=== PATIENT | female | born 1965 | race Caucasian/White ===

== ENCOUNTER → 2019-07-31 16:36 | Outpatient (BNVA) | payer OTHER, SELFPAY | PROVIDERS: Family Provider Internal Medicine; Visit Provider Internal Medicine | DX: G47.00 Insomnia, unspecified (principal); E87.6 Hypokalemia; M81.0 Age-related osteoporosis without current pathological fracture; Z87.311 Personal history of (healed) other pathological fracture; G47.09 Other insomnia | CPT/HCPCS: 80048 ==

== ENCOUNTER 2019-09-14 13:44 | Outpatient (CLI) | payer OTHER, SELFPAY ==
[2019-09-14 13:00] VITALS: BP 133/85; PULSE 104; RESP 16; TEMP 36.6; O2SAT 98
[2019-09-14] MEDS: denosumab 60 mg SDV SUBCUT (13:56)
--- NOTE | 2019-09-14 14:13 | PC.NURSE ---
A&Ox3. Negative COVID 19 screening. States has cough r/t allergies and chronic. small amount of clear sputum at times. Discussed Prolia.
[2019-09-14 14:26] VITALS: BP 122/75; PULSE 96; RESP 16; TEMP 37.7; O2SAT 98
[2019-09-14 14:31] VITALS: TEMP 36.4
[2019-09-14 15:00] VITALS: TEMP 36.4
[2019-09-14 15:15] VITALS: BP 123/81; PULSE 88; RESP 16; TEMP 36.4; O2SAT 98
--- NOTE | 2019-09-14 15:16 | PC.NURSE ---
[address] Sotelo notified. Denies SOB, CP, Pain, difficulty swallowing.
== END 2019-09-14 13:45 | disposition home or self-care (01) ==
LOC: RHEOACUTE 13:45
PROVIDERS: Family Provider Internal Medicine; Visit Provider Internal Medicine Rheumatology
DX: M81.0 Age-related osteoporosis without current pathological fracture (principal)
CPT/HCPCS: 36415; 82306; 96372; J0897

== ENCOUNTER 2019-11-01 12:25 | Outpatient (CLI) | payer OTHER, SELFPAY ==
--- NOTE | 2019-11-01 15:15 | XR_ITS ---
WS: [id number] SCREENING DEXA SCAN [employer] ([employer]) CLINICAL INFORMATION: Osteoporosis COMPARISON: None. FINDINGS: The L1-L4 bone mineral density measures 0.806 g/cm2. This corresponds to a T score score of -3.1 and Z score of -3.0. Left forearm bone mineral density is 0.801 with a T score of -0.9 and Z score of -0.7 XR/XR DEXA axial skeleton* [id number] IMPRESSION: Osteoporosis in the lumbar spine. Forearm demonstrates normal bone mineralization approaching osteopenia.
== END 2019-11-01 12:26 | disposition home or self-care (01) ==
PROVIDERS: Family Provider Internal Medicine; PCP Internal Medicine; Visit Provider Internal Medicine Rheumatology
DX: M81.0 Age-related osteoporosis without current pathological fracture (principal)
CPT/HCPCS: 77080

== ENCOUNTER 2020-01-23 08:55 | Outpatient (CLI) | payer OTHER, SELFPAY ==
--- NOTE | 2020-01-23 09:08 | MM_ITS ---
WS: [id number] BILATERAL DIGITAL DIAGNOSTIC MAMMOGRAM MAMMOGRAPHY WITH CAD CLINICAL INFORMATION: LUMP ON BREAST COMPARISON: TECHNIQUE: Bilateral CC, MLO, and ML views. FINDINGS: Scattered fibroglandular densities bilaterally. Lucent centered calcifications. Unremarkable left carol ast. Palpable marker along the axillary tail right breast. 6 mm lymph node along the axillary tail near th e palpable marker. No other mammographic abnormalities in this area. Ultrasound is pending. ULTRASOUND BREAST RIGHT TECHNIQUE: Ultrasound right breast focused area of concern. CLINICAL INFORMATION: LUMP ON BREAST COMPARISON: None. FINDINGS: Ultrasound right breast along the axillary tail area of concern. Deep to the palpable marker there is a normal-sized lymph node preserved fatty hilum measuring 7.9 x 7.5 x 9.0 mm. This has a benign appe arance but could be further evaluated with ultrasound-guided biopsy if continued concern. Additional adjacent normal appearing lymph node with fatty hilum superior to the skin marker measurin g 7.5 x 6.1 mm MM/[place] [id number] BI-RADS: 2-Benign FOLLOW UP: 1 Year Follow-up Recommend return to annual screening mammography.
--- NOTE | 2020-01-23 09:35 | US_ITS ---
WS: [id number] BILATERAL DIGITAL DIAGNOSTIC MAMMOGRAM MAMMOGRAPHY WITH CAD CLINICAL INFORMATION: LUMP ON BREAST COMPARISON: TECHNIQUE: Bilateral CC, MLO, and ML views. FINDINGS: Scattered fibroglandular densities bilaterally. Lucent centered calcifications. Unremarkable left carol ast. Palpable marker along the axillary tail right breast. 6 mm lymph node along the axillary tail near th e palpable marker. No other mammographic abnormalities in this area. Ultrasound is pending. ULTRASOUND BREAST RIGHT TECHNIQUE: Ultrasound right breast focused area of concern. CLINICAL INFORMATION: LUMP ON BREAST COMPARISON: None. FINDINGS: Ultrasound right breast along the axillary tail area of concern. Deep to the palpable marker there is a normal-sized lymph node preserved fatty hilum measuring 7.9 x 7.5 x 9.0 mm. This has a benign appe arance but could be further evaluated with ultrasound-guided biopsy if continued concern. Additional adjacent normal appearing lymph node with fatty hilum superior to the skin marker measurin g 7.5 x 6.1 mm US/US breast RT limited* [id number] BI-RADS: 2-Benign FOLLOW UP: 1 Year Follow-up Recommend return to annual screening mammography.
== END 2020-01-23 08:56 | disposition home or self-care (01) ==
LOC: RADSHAW 09:01
PROVIDERS: PCP Internal Medicine; Visit Provider Internal Medicine
DX: N63.10 Unspecified lump in the right breast, unspecified quadrant (principal)
CPT/HCPCS: 76642; 77066

== ENCOUNTER → 2020-01-31 14:48 | Outpatient (BNVA) | payer OTHER, SELFPAY | PROVIDERS: Family Provider Internal Medicine; PCP Internal Medicine; Visit Provider Internal Medicine Rheumatology | DX: M81.0 Age-related osteoporosis without current pathological fracture (principal); Z79.899 Other long term (current) drug therapy; F17.210 Nicotine dependence, cigarettes, uncomplicated; E55.9 Vitamin D deficiency, unspecified | CPT/HCPCS: 36415; 82306; 82310; 82565; 82784; 83516; 83970; 84075; 84080; 84100; 99203 ==

== ENCOUNTER → 2020-02-28 11:24 | Outpatient (BNVA) | payer OTHER, SELFPAY | PROVIDERS: Family Provider Internal Medicine; PCP Internal Medicine; Visit Provider Nurse Practitioner Family | DX: Z11.59 Encounter for screening for other viral diseases (principal) | CPT/HCPCS: 87635 ==

== ENCOUNTER → 2020-03-06 15:54 | Outpatient (BNVA) | payer OTHER, SELFPAY | PROVIDERS: Family Provider Internal Medicine; PCP Internal Medicine; Visit Provider Nurse Practitioner Family | DX: Z11.59 Encounter for screening for other viral diseases (principal) | CPT/HCPCS: 87635 ==

== ENCOUNTER → 2020-03-11 11:48 | Outpatient (BNVA) | payer OTHER, SELFPAY | PROVIDERS: Family Provider Internal Medicine; PCP Internal Medicine; Visit Provider Internal Medicine Rheumatology | DX: M81.0 Age-related osteoporosis without current pathological fracture (principal) | CPT/HCPCS: 36415; 82310; 82565 ==

== ENCOUNTER 2020-03-21 16:00 | Outpatient (CLI) | payer OTHER, SELFPAY ==
[2020-03-21 15:30] VITALS: BP 147/86; PULSE 102; RESP 16; TEMP 36.8; O2SAT 98
[2020-03-21] MEDS: denosumab 60 mg SDV SUBCUT (16:08)
[2020-03-21 16:32] VITALS: BP 133/88; PULSE 93; RESP 16; TEMP 36.8
== END 2020-03-21 16:01 | disposition home or self-care (01) ==
LOC: RHEOACUTE 16:01
PROVIDERS: Family Provider Internal Medicine; PCP Internal Medicine; Visit Provider Internal Medicine Rheumatology
DX: M81.0 Age-related osteoporosis without current pathological fracture (principal); Z79.899 Other long term (current) drug therapy; R79.89 Other specified abnormal findings of blood chemistry; F17.210 Nicotine dependence, cigarettes, uncomplicated; E55.9 Vitamin D deficiency, unspecified; Z91.81 History of falling
CPT/HCPCS: 36415; 82306; 96372; 99213; J0897

== ENCOUNTER 2020-08-27 14:23 | Outpatient (CLI) | payer OTHER, SELFPAY ==
[2020-08-27 16:03] LABS: 25 Hydroxy Vitamin D 29 ng/mL (30-100); Calcium 9.2 mg/dL (8.5-10.5); Glomerular Filtration Rate 129.6 mL/min (90-130)
== END 2020-08-27 14:24 | disposition home or self-care (01) ==
PROVIDERS: PCP Internal Medicine; Visit Provider Internal Medicine Rheumatology
DX: M81.0 Age-related osteoporosis without current pathological fracture (principal); Z79.899 Other long term (current) drug therapy
CPT/HCPCS: 36415; 82306; 82310; 82565; 96372

== ENCOUNTER → 2020-09-10 15:21 | Outpatient (BNVA) | payer OTHER, SELFPAY | PROVIDERS: PCP Internal Medicine; Visit Provider Internal Medicine Rheumatology | DX: M81.0 Age-related osteoporosis without current pathological fracture (principal); L50.8 Other urticaria; E55.9 Vitamin D deficiency, unspecified; F17.210 Nicotine dependence, cigarettes, uncomplicated | CPT/HCPCS: 99214 ==

== ENCOUNTER 2020-09-25 15:10 | Outpatient (CLI) | payer OTHER, SELFPAY ==
[2020-09-25 15:30] VITALS: BP 123/75; PULSE 80; RESP 17; TEMP 36.3; O2SAT 97
[2020-09-25] MEDS: denosumab 60 mg SDV SUBCUT (15:35)
[2020-09-25 15:43] VITALS: BP 123/75; PULSE 80; RESP 18; TEMP 36.3; O2SAT 97
== END 2020-09-25 15:11 | disposition home or self-care (01) ==
PROVIDERS: PCP Internal Medicine; Visit Provider Internal Medicine Rheumatology
DX: M81.0 Age-related osteoporosis without current pathological fracture (principal)
CPT/HCPCS: 96372; J0897

== ENCOUNTER → 2020-11-21 12:50 | Outpatient (BNVA) | payer OTHER, SELFPAY | PROVIDERS: PCP Internal Medicine; Visit Provider Internal Medicine | DX: Z12.11 Encounter for screening for malignant neoplasm of colon (principal); Z20.822 Contact with and (suspected) exposure to COVID-19 | CPT/HCPCS: 87635 ==

== ENCOUNTER 2020-11-25 07:14 | Day surgery (SDC) | payer OTHER, SELFPAY ==
--- NOTE | 2020-11-25 07:27 | ANES.PREANE2 ---
Pre-Anesthetic Assessment Pre-Anesthetic Assessment: Height/Weight: Height 1.7 m Weight 73.482 kg Preop Diagnosis: screening Proposed Procedure: Operation Date: 11/25/20 09:00 Proposed Procedures p Colonoscopy 16536 Z12.11(Not Applicable) - Saul Corona MD Familial anesthetic complications: None Was Beta Germain taken within 24 hours: N/A Was Clonidine taken within 24 hours: N/A Last intake: > 8 hrs Social: Social History: Tobacco and No alcohol Exam: Pre-Anes Outpt Exam: alert, oriented x 3, clear to auscultation bilaterally and regular rate & rhythm Airway: Cervical ROM: WNL MP: 3 Dentition: Full Musc/skel: Musc/skel: OA/DJD Comments: severe osteoporosis - r hip replaced, b/l wrist fractures d/t fall Anesthetic Plan: ASA status: 2 Anesthesia: MAC Risk of > 500 ml blood loss (7ml/kg in children): No PFSH Anesthesia PFSH: Medical History 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 Chronic pain High risk medication use Insomnia Low vitamin D level Osteoporosis Surgical History History of breast biopsy History of colonoscopy with polypectomy 12/14/2012 History of hysterectomy History of oral surgery SALVILARY GLAND REMOVAL ON LEFT History of surgery on wrist History of tonsillectomy Family History Other CAD (coronary artery disease) Cancer Diabetes Heart disease Stroke Denies family history of Rheumatoid arthritis Lupus Chronic kidney disease (CKD) Lung disease Hypertension Social History Smoking and tobacco status: current every day smoker Alcohol intake: never Marital status: History of recent travel: No Data Anesthesia Cardiac Studies: No Data to Display
[2020-11-25 07:40] VITALS: BP 130/85; PULSE 104; RESP 18; TEMP 36.9; O2SAT 95
[2020-11-25] MEDS: sodium chloride 0.9% 1,000 ML 30 ML IV (07:51)
--- NOTE | 2020-11-25 09:19 | P.HP_ITS ---
Same Day Surgery H&P Indication for Procedure/HPI DATE OF PROCEDURE: November 25, 2020 CHIEF COMPLAINT/INDICATIONFOR SURGICAL PROCEDURE: Family history of colon cancer PREOP DIAGNOSIS: screening PLANNED PROCEDRUE: Operation Date: 11/25/20 09:00 Proposed Procedures p Colonoscopy 55613 Z12.11(Not Applicable) - Saul Corona MD Medications/Allergies* Home Medications Medication Instructions Recorded Confirmed Type epinephrine 0.3 mg/0.3 mL 0.3 mg IM Q30M PRN 07/25/19 11/25/20 History injection, auto-injector diphenhydramine HCl 25 mg capsule 25 mg PO .at hs cap 10/16/19 11/25/20 History denosumab 60 mg/mL subcutaneous 60 mg SUBCUT .every 6 months ml 01/18/20 11/25/20 History syringe Allergies/Adverse Reactions Allergy/AdvReac Type Severity Reaction Status Date / Time azithromycin Allergy Severe ALGY-Anaphy Verified 11/25/20 07:40 laxis amoxicillin [From Augmentin] Allergy Unknown Verified 11/25/20 07:40 ciprofloxacin [From Cipro] Allergy Unknown Verified 11/25/20 07:40 clavulanic acid Allergy Unknown Verified 11/25/20 07:40 [From Augmentin] codeine Allergy unknown Verified 11/25/20 07:40 iodine Allergy Unknown Verified 11/25/20 07:40 norfloxacin [From Noroxin] Allergy Unknown Verified 11/25/20 07:40 NSAIDS (Non-Steroidal Allergy Unknown Verified 11/25/20 07:40 Anti-Inflamma Penicillins Allergy Unknown Verified 11/25/20 07:40 Sulfa (Sulfonamide Allergy Unknown Verified 11/25/20 07:40 Antibiotics) Current Medications: Generic Name Dose Route Start Last Admin Trade Name Freq PRN Reason Stop Dose Admin Sodium Chloride 1,000 mls @ 30 mls/hr 11/25/20 07:45 11/25/20 07:51 Sodium Chloride 0.9% IV 11/26/20 07:44 30 mls/hr .Q24H MYA Administration Pertinent History/Comorbid Conditions* Medical History (Updated 03/21/20 @ 16:04 by Luis Eduardo Sotelo MD) 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 Chronic pain High risk medication use Insomnia Low vitamin D level Osteoporosis Surgical History (Updated 07/31/19 @ 15:51 by Saul Corona MD) History of breast biopsy History of colonoscopy with polypectomy 12/14/2012 History of hysterectomy History of oral surgery SALVILARY GLAND REMOVAL ON LEFT History of surgery on wrist History of tonsillectomy Family History (Updated 01/31/20 @ 15:13 by Marlene Parada LPN) Diabetes CAD (coronary artery disease) Heart disease Cancer Stroke Denies family history of Rheumatoid arthritis Lupus Chronic kidney disease (CKD) Lung disease Hypertension Social History Smoking and tobacco status: current every day smoker Alcohol intake: never Marital status: History of recent travel: No Pertinent Exam Findings alert, oriented x 3, clear to auscultation bilaterally, regular rate & rhythm, operative site marked and procedure specific exam findings Recommendations Surgery/Procedure today Coding Level of Care Code 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
[2020-11-25 09:44] VITALS: BP 98/71; PULSE 83; RESP 20; TEMP 36.3; O2SAT 92
[2020-11-25 09:56] VITALS: BP 107/62; PULSE 81; RESP 18; O2SAT 97
--- NOTE | 2020-11-25 14:22 | ANE.PACU2 ---
Inpatient post-anesthesia follow up: Airway intact: Yes Vital signs: Temperature 97.3 F Pulse Rate 81 Respiratory Rate 18 Blood Pressure 107/62 Pulse Oximetry 97 Oxygen Delivery Me thod Room Air Oxygen Flow Rate Fraction of Inspir ed Oxygen Hydration adequate: Yes Nausea and vomiting: No Pain level: 2 Mental status: Baseline
== END 2020-11-25 10:05 | disposition home or self-care (01) ==
PROVIDERS: PCP Internal Medicine; Visit Provider Internal Medicine
PROC: 0DJD8ZZ Inspection of Lower Intestinal Tract, Via Natural or Artificial Opening Endoscopic (ICD-10-PCS; CPT 45378; principal; 2020-11-25 09:00)
DX: Z12.11 Encounter for screening for malignant neoplasm of colon (principal); Z86.010 Personal history of colon polyps; D12.4 Benign neoplasm of descending colon; Z79.1 Long term (current) use of non-steroidal anti-inflammatories (NSAID); M81.0 Age-related osteoporosis without current pathological fracture; F17.210 Nicotine dependence, cigarettes, uncomplicated
CPT/HCPCS: 45385; 88305; 96360; 96361; J2704; J7030

== ENCOUNTER 2021-03-18 14:26 | Outpatient (CLI) | payer OTHER, SELFPAY ==
--- NOTE | 2021-03-18 14:33 | MM_ITS ---
WS: [id number] DIAGNOSTIC BILATERAL DIGITAL MAMMOGRAM WITH CAD RIGHT breast ultrasound, limited HISTORY: UNSPECIFIED LUMP IN UNSPECIFIED BREAST COMPARISON: 01/23/2020 and 01/07/2018 TECHNIQUE: Bilateral craniocaudad, mediolateral oblique, and mediolateral views are submitted. Spot c ompression RIGHT MLO. Computer aided detection utilized. Breast composition: There are scattered areas of fibroglandular density. Palpable marker towards the RIGHT axillary tail is identified. No underlying mass identified. Normal fat within the axillary tail . No distortion of tissues. Benign calcification in the mid RIGHT breast. RIGHT breast ultrasound, limited. No abnormality noted in the RIGHT breast in the region of the palpable area. There are several benign lymph nodes in the axillary tail which may be related to the palpable abnormality. These are normal lymph nodes. MM/[place] [id number] IMPRESSION: BI-RADS: 2-Benign FOLLOW UP: 1 Year Follow-up
== END 2021-03-18 14:27 | disposition home or self-care (01) ==
LOC: RADSHAW 14:30
PROVIDERS: PCP Internal Medicine; Visit Provider Internal Medicine
DX: N63.0 Unspecified lump in unspecified breast (principal)
CPT/HCPCS: 76642; 77066

== ENCOUNTER 2021-03-31 15:20 | Outpatient (CLI) | payer OTHER, SELFPAY ==
[2021-03-31 16:36] LABS: Glomerular Filtration Rate 129.1 mL/min (90-130)
[2021-03-31 16:52] LABS: 25 Hydroxy Vitamin D 20 ng/mL (30-100)
== END 2021-03-31 15:21 | disposition home or self-care (01) ==
PROVIDERS: PCP Internal Medicine; Visit Provider Internal Medicine Rheumatology
DX: M81.0 Age-related osteoporosis without current pathological fracture (principal); Z79.899 Other long term (current) drug therapy
CPT/HCPCS: 36415; 82040; 82306; 82310; 82565

== ENCOUNTER 2021-04-15 15:07 | Outpatient (CLI) | payer OTHER, SELFPAY ==
[2021-04-15 15:22] VITALS: BP 137/91; PULSE 77; RESP 18; TEMP 36.6; O2SAT 97
[2021-04-15] MEDS: denosumab 60 mg SDV SUBCUT (15:33)
[2021-04-15 15:40] VITALS: BP 152/88; PULSE 91; RESP 18; TEMP 36.7; O2SAT 97
--- NOTE | 2021-04-15 16:12 | PC.NURSE ---
Patient's BP was elevated after injection, and b/l erythema noted on palms of hands. She states that she will self-medicate with Benadryl upon arrival at home, which is [place] [address] She will contact Emergency Services if she becomes more symptomatic. I spoke with Stefanie at Dr. Sotelo's office about the patient's condition, and she stated that she would inform the physician. dh
== END 2021-04-15 15:08 | disposition home or self-care (01) ==
LOC: ONCMED 15:09
PROVIDERS: PCP Internal Medicine; Visit Provider Internal Medicine Rheumatology
DX: M81.0 Age-related osteoporosis without current pathological fracture (principal)
CPT/HCPCS: 96372; J0897

== ENCOUNTER 2021-07-18 12:07 | Outpatient (CLI) | payer OTHER, SELFPAY ==
--- NOTE | 2021-07-18 12:29 | XRR_ITS ---
PROCEDURE INFORMATION: Exam: XR Right Femur Exam date and time: 07/18/2021 12:29 PM Age: 55 years old Clinical indication: Thigh; Left; Prior surgery; Patient HX: Pain in right femur at the implant site; Additional info: Acute right femur pain TECHNIQUE: Imaging protocol: XR Right femur. Views: 2 views. COMPARISON: MRI Hip w/o RIGHT [id number] 09/29/2016 4:26 PM FINDINGS: Bones/joints: Right total hip arthroplasty noted in expected alignment. No signs of hardware loosening. Right femur is intact without fracture or other osseous abnormality. Soft tissues: Unremarkable. XR/XR femur RT min 2V* [id number] IMPRESSION: Right total hip arthroplasty in expected alignment. No signs of hardware complication. Otherwise, unremarkable radiographs of the right femur.
== END 2021-07-18 12:08 | disposition home or self-care (01) ==
LOC: RAD 12:23
PROVIDERS: PCP Internal Medicine; Visit Provider Internal Medicine
DX: M79.604 Pain in right leg (principal); Z96.641 Presence of right artificial hip joint
CPT/HCPCS: 73552

== ENCOUNTER 2021-09-14 10:00 | Emergency (ER) | payer OTHER, SELFPAY ==
[2021-09-14 10:09] VITALS: BP 149/87; PULSE 102; RESP 18; TEMP 36.8; O2SAT 97; BMI 26.6
--- NOTE | 2021-09-14 10:19 | XRR_ITS ---
PROCEDURE INFORMATION: Exam: XR Left Hip Exam date and time: 09/14/2021 10:32 AM Age: 56 years old Clinical indication: Hip pain; Left hip; Prior surgery; Additional info: Pain, injury; One view pelvis too please TECHNIQUE: Imaging protocol: XR Left hip. Views: 2 or 3 views hip with pelvis when performed. COMPARISON: No relevant prior studies available. FINDINGS: Bones/joints: Metallic arthroplasty is present in the right hip in good position. No acute bony abnormalities seen. No acute fracture. Soft tissues: Unremarkable. XR/XR hip LT 2-3V wo/w pel* [id number] IMPRESSION: 1. No acute findings. 2. Metallic arthroplasty right hip in good position
--- NOTE | 2021-09-14 10:34 | W.ED.LOWEXIN ---
HPI - Extremity Injury (Lower) General: Chief Complaint: Extremity Injury, Lower Stated Complaint: Left Hip injury Time Seen by Provider: 09/14/21 10:01 Source: patient Mode of arrival: ambulatory Limitations: no limitations History of Present Illness: Patient is a nice 56-year-old female who presents to ED today with a complaint of left hip pain. Patient states she was walking 2 days ago when she heard a clunk in her left hip and states she has had discomfort since. 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 Patient is still ambulatory on the extremity. She has not noticed any redness or warmth to the joint. No recent illness. She does not complain of numbness, tingling, loss of sensation, color/temperature changes to the left lower extremity. Denies back pain. MD complaint: hip injury Onset (ago): day(s) Injury: Left: hip Place: home Exacerbating factors: weight bearing, movement and palpation Associated symptoms: Reports no associated symptoms Other symptoms: none Review of Systems Const: Denies: fever(s), chills, body aches, fatigue or malaise Card: Denies: chest pain Resp: Denies: dyspnea GI: Denies: abdominal pain : Denies: flank pain, dysuria or hematuria Musc: Reports: joint pain (L hip); Denies: neck pain, back pain, extremity pain, extremity swelling, joint swelling, joint redness, joint warmth or limited range of motion Skin/Breast: Denies: rash Neuro: Denies: headache(s), numbness in extremities, weakness in extremities or sensory changes [facility] ED PFSH: Medical History 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 Chronic pain High risk medication use Insomnia Low vitamin D level Osteoporosis Surgical History History of breast biopsy History of colonoscopy with polypectomy 12/14/2012 History of hysterectomy History of oral surgery SALVILARY GLAND REMOVAL ON LEFT History of surgery on wrist History of tonsillectomy Family History Other CAD (coronary artery disease) Cancer Diabetes Heart disease Stroke Denies family history of Rheumatoid arthritis Lupus Chronic kidney disease (CKD) Lung disease Hypertension Social History Smoking and tobacco status: current every day smoker Alcohol intake: never Marital status: History of recent travel: No Physical Exam Const: COMMON NORMALS: no acute distress, average body habitus, patient oriented x3, no limitations, healthy appearing, alert and well nourished GENERAL APPEARANCE: cooperative Back/Pelvis: COMMON NORMALS: thoracic and lumbar spine normal to inspection, no thoracic nor lumbar tenderness and thoraco-lumbar ROM normal Extremity: COMMON NORMALS: capillary refill normal, no joint enlargement, no clubbing, cyanosis or edema, no calf tenderness and no pedal edema GENERAL: Yes normal exam except as noted LEFT LOWER EXTREMITY: Yes hip joint (pain to posteriolateral hip; no shortening/rotation; normal flex/extension) Left hip: Yes neurovascular exam (normal) Neuro: COMMON NORMALS: patient oriented x3, moves all extremities, no focal motor deficits and no sensory deficits noted SENSORIUM/ORIENTATION: Yes alert Skin: COMMON NORMALS: no rashes or lesions noted GENERAL SKIN EXAM: no rashes or lesions noted Course Vital Signs: Vital signs: Vital Signs Temperature 98.1 F 09/14/21 10:38 Pulse Rate 96 09/14/21 10:38 Respiratory Rate 18 09/14/21 10:38 Blood Pressure 147/103 09/14/21 10:38 Pulse Oximetry 96 09/14/21 10:38 MDM - Extremity Injury (Lower) Medical Decision Making XRs negative. Patient is ambulatory. She states she follows with pain management and has pain medications at home she can take. Patient states she plans on following up with her PCP Dr. Corona if pain persists. Other Data [address] [address] XRay Report Signed Patient: Lisbeth Smith Unit #: [id number] : [id number] Age/Sex: 56 / F ADM Date: 09/14/21 Loc: ER Room/Bed: Attending Dr: Ordering Provider/Ordering MD: Belkis Chery Date of Service: 09/14/21 Procedure(s): XR hip LT 2-3V wo/w pel* [id number] Accession Number(s): [id number] Report Number: [id number] PROCEDURE INFORMATION: Exam: XR Left Hip Exam date and time: 09/14/2021 10:32 AM Age: 56 years old Clinical indication: Hip pain; Left hip; Prior surgery; Additional info: Pain, injury; One view pelvis too please TECHNIQUE: Imaging protocol: XR Left hip. Views: 2 or 3 views hip with pelvis when performed. COMPARISON: No relevant prior studies available. FINDINGS: Bones/joints: Metallic arthroplasty is present in the right hip in good position. No acute bony abnormalities seen. No acute fracture. Soft tissues: Unremarkable. XR/XR hip LT 2-3V wo/w pel* [id number] IMPRESSION: 1. No acute findings. 2. Metallic arthroplasty right hip in good position Dictated By: Gary Jesus Signed By: Gary Jesus Signed Date/Time: 09/14/21 1106 DD/ 1032 Discharge Plan Discharge Patient Disposition: Home Clinical Impression: Acute pain of left hip Condition: Stable Prescriptions: No Action epinephrine [EpiPen 2-Dudley] 0.3 mg/0.3 mL auto-injector 0.3 mg IM Q30M PRN (Reason: Allergy Symptoms) 0RF Prolia 60 mg/mL syringe 60 mg SUBCUT .every 6 months 0RF diphenhydramine HCl [Benadryl] 25 mg capsule 25 mg PO .at hs 0RF levofloxacin 750 mg tablet 750 mg PO DAILY Qty: 14 0RF fluticasone propionate [Flonase Allergy Relief] 50 mcg/actuation spray,suspension 2 spray intranasal DAILY Qty: 16 3RF Rx Instructions: administer into each nostril cholecalciferol (vitamin D3) 1,250 mcg (50,000 unit) capsule 1,250 mcg PO .Q7days Qty: 12 0RF mirtazapine [Remeron] 15 mg tablet 15 mg PO .at bedtime 90 Days Qty: 90 0RF Discharge Orders: Discharge ED (Routine); Ordered 09/14/21 Ordered By: Belkis Chery Referrals: Saul Corona MD [Primary Care Provider] - Patient Instructions: Hip Pain (ED) Coding Level of Care Code ED Continuous Improvement Black Belt for Tee Villalobos
[2021-09-14 10:38] VITALS: BP 147/103; PULSE 96; RESP 18; TEMP 36.7; O2SAT 96
== END 2021-09-14 11:16 | disposition home or self-care (01) ==
PROVIDERS: Emergency Provider Physician Assistant; PCP Internal Medicine
DX: M25.552 Pain in left hip (principal); F17.210 Nicotine dependence, cigarettes, uncomplicated
CPT/HCPCS: 73502; 99282

== ENCOUNTER 2021-10-16 14:37 | Outpatient (CLI) | payer OTHER, SELFPAY ==
[2021-10-16 15:03] VITALS: BP 151/98; PULSE 86; RESP 18; TEMP 36.6; O2SAT 98
[2021-10-16] MEDS: predniSONE 20 mg Tablet PO (15:12)
[2021-10-16] MEDS: diphenhydrAMINE 25 mg Capsule PO (15:12)
[2021-10-16 15:52] LABS: Albumin Level 4.2 g/dL (3.5-5.2); Calcium 9.3 mg/dL (8.5-10.5); Glomerular Filtration Rate 104.2 mL/min (90-130)
[2021-10-16] MEDS: denosumab 60 mg SDV SUBCUT (15:56)
[2021-10-16 15:58] LABS: 25 Hydroxy Vitamin D 16 ng/mL (30-100)
[2021-10-16 16:11] VITALS: BP 157/94; PULSE 87; RESP 18; TEMP 36.9; O2SAT 98
== END 2021-10-16 14:38 | disposition home or self-care (01) ==
PROVIDERS: PCP Internal Medicine; Referring Provider Internal Medicine Rheumatology; Visit Provider Internal Medicine Rheumatology
DX: M81.0 Age-related osteoporosis without current pathological fracture (principal); Z79.899 Other long term (current) drug therapy
CPT/HCPCS: 36415; 82040; 82306; 82310; 82565; 96372; J0897; J7512

== ENCOUNTER 2022-02-12 05:11 | Emergency (ER) | payer OTHER, SELFPAY ==
[2022-02-12 05:20] VITALS: BP 182/97; PULSE 90; RESP 18; TEMP 36.8; O2SAT 97; BMI 27.9
--- NOTE | 2022-02-12 05:21 | CTR_ITS ---
PROCEDURE INFORMATION: Exam: CT Head Without Contrast Exam date and time: 02/12/2022 5:25 AM Age: 56 years old Clinical indication: Stroke-like symptoms; Left facial droop; Additional info: Sudden onset of left facial droop with numbness. Hypertensive on monitor. TECHNIQUE: Imaging protocol: Computed tomography of the head without contrast. Radiation optimization: All CT scans at this facility use at least one of these dose optimization techniques: automated exposure control; mA and/or kV adjustment per patient size (includes targeted exams where dose is matched to clinical indication); or iterative reconstruction. Other technique: STROKE PROTOCOL was implemented. COMPARISON: No relevant prior studies available. RADIATION DOSE METRICS: Total DLP (mGy-cm): 1115.15 FINDINGS: Brain: Normal. No hemorrhage. Unremarkable white matter. No mass effect. Cerebral ventricles: Cavum septum pellucidum suspected. Ventricles normal size. Paranasal sinuses: Visualized sinuses are unremarkable. No fluid levels. Mastoid air cells: Visualized mastoid air cells are well aerated. Bones/joints: Unremarkable. No acute fracture. Soft tissues: Unremarkable. CT/CT head wo con* [id number] IMPRESSION: No acute intracranial abnormality. ASSESSMENT: ASPECTS ([place] Stroke Program Early CT Score) is 10.
--- NOTE | 2022-02-12 05:22 | W.ED.NEUROSD ---
HPI - Neuro Symptoms/Deficit General: Chief Complaint: Neuro Symptoms/Deficit Stated Complaint: left side of face numb Time Seen by Provider: 02/12/22 05:14 Source: patient Mode of arrival: ambulatory Limitations: no limitations History of Present Illness: 56-year-old female who states that yesterday at noon she started noticing some tingling to the left side of her face. States she woke up with swelling and went to take a drink of Diet Coke and dribbled out her mouth and she noticed that she had partial paralysis to the left side of her face. 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 Chronic pain High risk medication use Insomnia Low vitamin D level Osteoporosis Surgical History History of breast biopsy History of colonoscopy with polypectomy 12/14/2012 History of hysterectomy History of oral surgery SALVILARY GLAND REMOVAL ON LEFT History of surgery on wrist History of tonsillectomy Family History Other CAD (coronary artery disease) Cancer Diabetes Heart disease Stroke Denies family history of Rheumatoid arthritis Lupus Chronic kidney disease (CKD) Lung disease Hypertension Social History Smoking and tobacco status: current every day smoker Alcohol intake: never Marital status: History of recent travel: No NIH stroke score NIHSS: Level Of Consciousness - 1a: 0 Level Of Consciousness Questions - 1b: Both Correct Level Of Consciousness Commands - 1c: Both Correct Best Gaze - 2: Normal Visual Summers - 3: No Visual Loss Facial Palsy - 4: Partial Paralysis Motor Arm Right - 5: No Drift Motor Arm Left - 5: No Drift Motor Leg Right - 6: No Drift Motor Leg Left - 6: No Drift Limb Ataxia - 7: Absent Sensory - 8: Normal Best Language - 9: No Aphasia Dysarthia - 10: Normal Extinction And Inattention - 11: 0 Score: Total Score: 2 Physical Exam Const: COMMON NORMALS: no acute distress, patient oriented x3 and healthy appearing HENMT: COMMON NORMALS: normocephalic and atraumatic HEAD & SCALP: normocephalic and atraumatic Eye: COMMON NORMALS: Equal, round and reactive pupils present and EOMs intact bilaterally PUPIL: Yes Equal, round and reactive pupils present Neck/C-Spine: COMMON NORMALS: full ROM and supple Chest: COMMONS NORMALS: normal inspection of the chest and normal palpation of entire chest wall Resp: COMMON NORMALS: normal respiratory effort, No retractions, No use of accessory muscles and clear to auscultation bilaterally AUSCULTATION: clear to auscultation bilaterally Cardio: COMMON NORMALS: regular rate, regular rhythm and No murmurs present (Cardio) RATE: regular rate RHYTHM: regular rhythm GI: COMMON NORMALS: Normal to inspection, nondistended, normoactive bowel sounds present, Soft to palpation, non-tender and no masses PALPATION: Yes Soft to palpation Extremity: COMMON NORMALS: normal to inspection and full ROM Neuro: COMMON NORMALS: patient oriented x3, moves all extremities and no focal motor deficits SPEECH: speech normal MOTOR EXAM: 5/5 motor strength present throughout Psych: COMMON NORMALS: mental status grossly normal, Normal thought process present and cooperative THOUGHT PROCESS: Normal thought process present Skin: COMMON NORMALS: no rashes or lesions noted and no wounds GENERAL SKIN EXAM: no rashes or lesions noted Course Vital Signs: Vital signs: Vital Signs Temperature 98.3 F 02/12/22 05:45 Pulse Rate 82 02/12/22 05:45 Respiratory Rate 15 02/12/22 05:45 Blood Pressure 162/90 02/12/22 05:45 Pulse Oximetry 94 02/12/22 05:45 Oxygen Delivery Me thod 02/12/22 05:20 MDM - Neuro Symptoms/Deficit Medical Decision Making Patient presents with left-sided facial droop 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 Lab Data Radiology Impressions Head CT 02/12/22 05:21 IMPRESSION: No acute intracranial abnormality. ASSESSMENT: ASPECTS (Jennifer Stroke Program Early CT Score) is 10. Discharge Plan Discharge Patient Disposition: Home Clinical Impression: George's palsy Condition: Stable Prescriptions: New prednisone 50 mg tablet 50 mg PO DAILY Qty: 5 0RF valacyclovir 1 gram tablet 1,000 mg PO TID 7 Days Qty: 21 0RF No Action epinephrine [EpiPen 2-Dudley] 0.3 mg/0.3 mL auto-injector 0.3 mg IM Q30M PRN (Reason: Allergy Symptoms) Prolia 60 mg/mL syringe 60 mg SUBCUT .every 6 months montelukast 10 mg tablet 10 mg PO DAILY Qty: 30 6RF fluticasone propionate [Flonase Allergy Relief] 50 mcg/actuation spray,suspension 2 spray intranasal DAILY PRN Rx Instructions: administer into each nostril levocetirizine 5 mg tablet 10 mg PO DAILY Qty: 180 3RF mirtazapine [Remeron] 15 mg tablet 15 mg PO .at bedtime 90 Days Qty: 90 0RF cholecalciferol (vitamin D3) 1,250 mcg (50,000 unit) capsule 1,250 mcg PO .Q7days Qty: 12 1RF Discharge Orders: Discharge ED (Routine); Ordered 02/12/22 Ordered By: Michelle Baldwin Referrals: Saul Corona MD [Primary Care Provider] - 1-3 days Discharge Diet: Advance as tolerated Discharge Activity: Resume usual activity Patient Instructions: George Palsy (ED) Coding Level of Care Code ED Home Management Supervisor for Chg Fwd Exam Comprehensive
[2022-02-12 05:45] VITALS: BP 162/90; PULSE 82; RESP 15; TEMP 36.8; O2SAT 94
== END 2022-02-12 05:46 | disposition home or self-care (01) ==
PROVIDERS: Emergency Provider Emergency Medicine; PCP Internal Medicine
DX: G51.0 Bell's palsy (principal)
CPT/HCPCS: 70450; 99284

== ENCOUNTER 2022-05-04 10:41 | Outpatient (CLI) | payer OTHER, SELFPAY ==
[2022-05-04 11:45] VITALS: BP 142/88; PULSE 90; RESP 18; TEMP 36.8; O2SAT 96
[2022-05-04] MEDS: diphenhydrAMINE 25 mg Capsule 50 MG PO (11:52)
[2022-05-04 12:24] LABS: 25 Hydroxy Vitamin D 16 ng/mL (30-100); Albumin Level 3.8 g/dL (3.5-5.2); Calcium 9.2 mg/dL (8.5-10.5); Glomerular Filtration Rate 128.6 mL/min (90-130)
[2022-05-04] MEDS: denosumab 60 mg SDV SUBCUT (12:33)
[2022-05-04 12:44] VITALS: BP 153/98; PULSE 83; RESP 18; TEMP 36.2; O2SAT 96
== END 2022-05-04 10:42 | disposition home or self-care (01) ==
PROVIDERS: PCP Internal Medicine; Referring Provider Internal Medicine Rheumatology
DX: M81.0 Age-related osteoporosis without current pathological fracture (principal)
CPT/HCPCS: 36415; 82040; 82306; 82310; 82565; 96372; J0897

== ENCOUNTER 2022-11-25 14:02 | Oncology outpatient (recurring) (ONCR) | payer OTHER, SELFPAY ==
[2022-11-25 15:48] LABS: Albumin Level 4.2 g/dL (3.5-5.2); Calcium 8.8 mg/dL (8.5-10.5); Glomerular Filtration Rate 128.1 mL/min (90-130)
[2022-11-25] MEDS: denosumab 60 mg SDV SUBCUT (15:59)
[2022-11-25 16:03] LABS: 25 Hydroxy Vitamin D 25 ng/mL (30-100)
== END 2022-12-18 23:59 | disposition home or self-care (01) ==
LOC: ONCMED 14:03
PROVIDERS: Internal Medicine Rheumatology; PCP Internal Medicine; Visit Provider Internal Medicine Medical Oncology
DX: M81.0 Age-related osteoporosis without current pathological fracture (principal); Z79.899 Other long term (current) drug therapy
CPT/HCPCS: 36415; 82040; 82306; 82310; 82565; 96401; J0897

== ENCOUNTER 2023-06-10 07:42 | Oncology outpatient (recurring) (ONCR) | payer OTHER, SELFPAY ==
--- OUTSIDE RECORDS SUMMARY | 2023-06-10 07:45 | XMS_ITS | Patient Health Record ---
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 Name Role Phone Chloe CID, Margarito Primary Care Provider Un available Jess CID, Flavio Unavailable [phone] Margarito Corona MD Unavailable Unavaila zeyad NELSONP, Jojo Unavailable [phone] ALLERGIES Allergen (clinical drug ingredient) Drug/Non Drug Allergy documented on EMR Reaction Allergy Type Onset Date Status Iodine (uncoded) Unknown Allergy Act kit multiple antibiotics (Cipro and clindamycin OK) (uncoded) anaphylaxis Allergy Active multiple chemicals (uncoded) anaphylaxis Allergy Active NSAIDs (uncoded) Unknown Allergy Act kit papaya (uncoded) anaphylaxis Allergy A ctive sulfa (uncoded) anaphylaxis Allergy Ac tive codeine codeine Unknown Drug Allergy Active quinine quiNINE rash Drug Allergy Active RESULTS Component Value Reference Range Notes Urine tox screen / MS if ind icated Reviewed date:06/10/2022 03:50:09 PM Interpretation: Performing Lab: Notes/Report: Urine tox screen / MS if ind icated Reviewed date:02/09/2023 03:10:26 PM Interpretation:Consistent Performing Lab: Notes/Report: Consistent REASON FOR REFERRAL No Information MEDICATIONS Medication SIG (Take, Route, Frequency, Duration) Notes Start Date End Date Status levocetirizine 5 mg 1 tab orally once a day (in the evening) Active Prolia 60 mg/mL as directed subcutaneously every 6 months for 12 month(s) Active Remeron 15 mg 1 tab orally once a day (at bedtime) Active tiZANidine 4 mg 1 tab(s) orally at bedtime Active Vitamin D2 50,000 intl units 1 cap orally every other week 11/28/2020 Active levoFLOXacin 750 mg 1 tab(s) orally ever y 24 hours for 10 day(s) Active Advair Diskus 500 mcg-50 mcg 1 INH inhaled 2 times a day for 30 day(s) Active acetaminophen-oxycodon e 325 mg-5 mg 1-2 tabs po orally Q4-6H prn pain (max 5/day; hold within 4H of planned sleep) for 28 days Approved for early fill on 06/19/23 due to holiday weekend. ICD-10: G89.29 06/08/2023 Active Icy Hot - 1 lucio applied topically 2 times a day Active acetaminophen-oxycodon e 325 mg-5 mg 1-2 tabs po orally Q4-6H prn pain (max 5/day; hold within 4H of planned sleep) for 28 days Do not fill prior to 07/17/23. ICD-10: G89.29 06/08/2023 Active SOCIAL HISTORY Tobacco Use: Social History Observation Description Date Details (start date - stop date) Current Smoker NA - NA Sex Assigned At : Social History Observation Description Sex Assigned At Unknown alcohol Question Answer Notes Did you have a drink containing alcohol in the p ast year? No Points 0 Interpretation Negative Tobacco use: Question Answer Notes : current smoker Are you interested in quitting? Ready to quit How many cigarettes a day do you smoke? 21-30 How often do you smoke cigarettes? every day How soon after you wake up do you smoke your fir st cigarette? within 5 min When did you start smoking? 1985 PROBLEMS Problem Type ICD Code Onset Dates Problem Status W/U Status Risk SNOMED Code Notes Problem Age-related osteoporosis without current pathological fracture (M81.0) Active confirmed Age-related osteoporosis (639991012) Problem Spinal stenosis, lumbar region with neurogenic claudication (M48.062) Active confirmed Neurogenic claudication (861460916) Problem Myalgia, other site (M79.18) Active confirmed Muscle pain (56748789) Problem Vertebrogenic low back pain (M54.51) Active confirmed Vertebrogenic pain syndrome (890194123) Problem Myalgia (M79.1) Active confirmed Myalgi a (08797710) Problem Trochanteric bursitis, right hip (M70.61) Active confirmed Trochanteric bursitis of right hip (566913604981393 ) Problem Intervertebral disc disorders with radiculopathy, lumbar region (M51.16) Active confirmed Radiculopathy due to lumbar intervertebral disc disorder (174747423970645 ) Problem Spinal stenosis, lumbar region (M48.06) Active confirmed Spinal stenosis of lumbar region (46750577) Problem Pain in right hip (M25.551) Active confirmed Right hip pain (124101407198843 ) Problem Other chronic pain (G89.29) Active confirmed Chronic pain (44646665) Problem Hypersomnia, unspecified (G47.10) Active confirmed Hypersomnia (49129333) Problem senior care (current) use of opiate analgesic (Z79.891) Active confirmed High risk drug monitoring status (678458352) Problem Spondylosis without myelopathy or radiculopathy, lumbar region (M47.816) Active confirmed Lumbosacral spondylosis without myelopathy (46191318) Problem Low back pain (M54.5) Active confirmed Low back pain (580116804) Problem Sacroiliitis, not elsewhere classified (M46.1) Active confirmed Solitary sacroiliitis (328479141) Problem Sacroiliitis (720.2) Active confirmed Solitary sacroiliitis (895983653) Problem Lumbar spinal stenosis (724.02) Active confirmed Lumbar spinal stenosis (36808732) Problem Anxiety State, other, specified: procedure related (300.09) Active confirmed Anxiety sta te (839095277) Problem LONG-TERM USE MEDS NEC (V58.69) Active confirmed Long-term drug therapy (221345346) r/o substance abuse Problem Osteoporosis NOS (733.00) Active confirmed Osteoporosis (44358683) Problem Lumbar (w/out myelopathy) intervertebral disc disorder (722.10) Active confirmed Displacement of lumbar intervertebral disc without myelopathy (72788546) Problem Trochanteric bursitis (726.5) Active confirmed Trochanteri c bursitis (8922489) Problem Pelvic/Hip pain (719.45) Active confirmed Arthralgia of the pelvic region and thigh (207969652) Problem Low back pain (724.2) Active confirmed Low back pain (403334404) Problem Hypersomnia (780.54) Active confirmed Hypersomnia (91108639) Problem Muscle spasm (728.85) Active confirmed Spasm (35576941) Problem Lumbosacral spondylosis without myelopathy (721.3) Active confirmed Lumbosacral spondylosis without myelopathy (27423287) VITAL SIGNS Temperature 93.5 degrees Fahrenheit 06/08/2023 Oximetry 96 % 06/08/2023 Height 67 in 06/08/2023 Weight 174.6 lbs 06/08/2023 BMI 27.34 kg/m2 06/08/2023 Encounters Encounter Location Date Provider Diagnosis [facility], [address] [id number] 06/10/2022 Flavio Mercado Spinal stenosis, lumbar region with neurogenic claudication M48.062 ; Vertebrogenic low back pain M54.51 ; Trochanteric bursitis, right hip M70.61 ; Pain in right hip M25.551 ; Sacroiliitis, not elsewhere classified M46.1 ; Spondylosis without myelopathy or radiculopathy, lumbar region M47.816 ; Intervertebral disc disorders with radiculopathy, lumbar region M51.16 ; Myalgia, other site M79.18 ; Age-related osteoporosis without current pathological fracture M81.0 ; Hypersomnia, unspecified G47.10 and 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 Z79.891 [facility], [address] [id number] 09/15/2022 Flavio Mercado Spinal stenosis, lumbar region with neurogenic claudication M48.062 ; Vertebrogenic low back pain M54.51 ; Trochanteric bursitis, right hip M70.61 ; Pain in right hip M25.551 ; Sacroiliitis, not elsewhere classified M46.1 ; Spondylosis without myelopathy or radiculopathy, lumbar region M47.816 ; Intervertebral disc disorders with radiculopathy, lumbar region M51.16 ; Myalgia, other site M79.18 ; Age-related osteoporosis without current pathological fracture M81.0 ; Hypersomnia, unspecified G47.10 and senior care (current) use of opiate analgesic Z79.891 [facility], [address] [id number] 12/10/2022 Jojo Gallagher Vertebrogenic low ba ck pain M54.51 ; Other chronic pain G89.29 and 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 [address] [place], [place] [id number] 06/08/2023 Jojo Gallagher Vertebrogenic low ba ck pain M54.51 and Other chronic pain G89.29 ASSESSMENTS Encounter Date Diagnosis Assessment Notes Treatment Notes Treatment Clinical Notes 06/10/2022 Spinal stenosis, lumbar region with neurogenic claudication (ICD-10 - M48.062) 09/15/2022 Spinal stenosis, lumbar region with neurogenic claudication (ICD-10 - M48.062) 12/10/2022 Other chronic pain (ICD-10 - G89.29) Patient reports that taking her pain medication has allowed her to travel this summer more comfortably. Plan to continue oral opioid medication management 12/10/2022 Vertebrogenic low back pain (ICD-10 - M54.51) Chronic low back pain 03/23/2023 Vertebrogenic low back pain (ICD-10 - M54.51) Chronic low back pain. 06/08/2023 Vertebrogenic low back pain (ICD-10 - M54.51) Chronic low back pain. 06/08/2023 Other chronic pain (ICD-10 - G89.29) Patient reports that taking her pain medication allows her to continue working. Plan to continue oral opioid medication management. 03/23/2023 Other chronic pain (ICD-10 - G89.29) Patient reports benefit with use of her pain medication. Plan to continue oral opioid medication management. 09/15/2022 Vertebrogenic low back pain (ICD-10 - M54.51) Do not anticipate minimally invasive interventional spine treatment via this facility (see allergin history: iodinated contrast material use would be desired for such interventional treatment). Oral opioid medication use with history of benefit. 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 Patient has since had right hip surgery 06/10/2022 Vertebrogenic low back pain (ICD-10 - M54.51) Do not anticipate offering patient minimally invasive interventional spine treatment. Oral opioid medication use with history of benefit. Plan to continue medication management 06/10/2022 Trochanteric bursitis, right hip (ICD-10 - M70.61) Right trochanteric bursa injection with history of efficacy appreciated. Patient has since underwent right hip surgery 06/10/2022 Pain in right hip (ICD-10 - M25.551) Post-operative follow-up with orthopedics as needed 09/15/2022 Pain in right hip (ICD-10 - M25.551) Post-operative follow-up with orthopedics as needed 09/15/2022 Sacroiliitis, not elsewhere classified (ICD-10 - M46.1) 06/10/2022 Sacroiliitis, not elsewhere classified (ICD-10 - M46.1) 06/10/2022 Spondylosis without myelopathy or radiculopathy, lumbar region (ICD-10 - M47.816) 09/15/2022 Spondylosis without myelopathy or radiculopathy, lumbar region (ICD-10 - M47.816) 09/15/2022 Intervertebral disc disorders with radiculopathy, lumbar region (ICD-10 - M51.16) 06/10/2022 Intervertebral disc disorders with radiculopathy, lumbar region (ICD-10 - M51.16) 06/10/2022 Myalgia, other site (ICD-10 - M79.18) Pattern has been appreciated and noted to be consistent with an iliopsoas myofascial pain syndrome 09/15/2022 Myalgia, other site (ICD-10 - M79.18) Pattern has been appreciated and noted to be consistent with an iliopsoas myofascial pain syndrome 09/15/2022 Age-related osteoporosis without current pathological fracture (ICD-10 - M81.0) 06/10/2022 Age-related osteoporosis without current pathological fracture (ICD-10 - M81.0) 06/10/2022 Hypersomnia, unspecified (ICD-10 - G47.10) Patient has complained of worsening hypersomnia. Have recommended a sleep study and avoidance of sedative / narcotic substances prior to planned sleep. Patient has deferred on the offer of a sleep study. Patient has been counseled on the risks of sleep apnea (if present), with or without opioids or other sedatives, and the patient verbalized understanding and acceptance of the increased risk (sleep apnea, respiratory depression, ) associated with sedative or narcotic (opioid) medication usage. Patient has been counseled to hold opioid or sedative medications prior to planned sleep or dangerous activities and patient verbalized understanding that noncompliance would be at patient's increased risk. Patient has been counseled that synergistic risk occurs with concomitant opioid (such as oxycodone) and sedative (such as zolpidem) usage (see CDC recommendations, below). 09/15/2022 Hypersomnia, unspecified (ICD-10 - G47.10) Patient has complained of worsening hypersomnia. Have recommended a sleep study and avoidance of sedative / narcotic substances prior to planned sleep. Patient has deferred on the offer of a sleep study. Patient has been counseled on the risks of sleep apnea (if present), with or without opioids or other sedatives, and the patient verbalized understanding and acceptance of the increased risk (sleep apnea, respiratory depression, ) associated with sedative or narcotic (opioid) medication usage. Patient has been counseled to hold opioid or sedative medications prior to planned sleep or dangerous activities and patient verbalized understanding that noncompliance would be at patient's increased risk. Patient has been counseled that synergistic risk occurs with concomitant opioid (such as oxycodone) and sedative (such as zolpidem) usage (see CDC recommendations, below). 09/15/2022 senior care (current) use of opiate analgesic (ICD-10 - Z79.891) Patient has a total daily MED of 37.5. This places the patient in the [facility] moderate risk category for total daily opioid usage (not to be confused with the separate potential significant risk in regards to possible sleep apnea, above). Have recommended patient taper daily doses to the lowest number of daily doses that provide effective analgesia. Patient has received the Opioid Analgesic REMS Patient Counseling Guide. Patient has had opportunity to read the Guide and ask questions pertaining to the Guide. Patient has received information regarding CDC recommendations related to concomitant opioid and sedative usage. Recommended patient taper off of zolpidem. Patient has since been noted to have no longer reported zolpidem use. Patient has been advised on 02/22/20 that due to the [facility] concerns and actions, any suspected patient misuse, abuse, or diversion of controlled substances (i.e. opioids/narcotics/pa in killers) WILL result in dissolution of treatment from this clinic. Patients adhering to the concepts contained within the patient's Treatment Agreement will be protected from such termination of care. Patient was given a copy of the Treatment Agreement, signed by patient on 08/29/19. Patient signed an opioid consent form on 08/29/19. 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 This places the patient in the [facility]' moderate risk category for total daily opioid usage (not to be confused with the separate potential significant risk in regards to possible sleep apnea, above). Have recommended patient taper daily doses to the lowest number of daily doses that provide effective analgesia. Patient has received the Opioid Analgesic REMS Patient Counseling Guide. Patient has had opportunity to read the Guide and ask questions pertaining to the Guide. Patient has received information regarding CDC recommendations related to concomitant opioid and sedative usage. Recommended patient taper off of zolpidem. Patient has since been noted to have no longer reported zolpidem use. Patient has been advised on 02/22/20 that due to the [facility] concerns and actions, any suspected patient misuse, abuse, or diversion of controlled substances (i.e. opioids/narcotics/pa in killers) WILL result in dissolution of treatment from this clinic. Patients adhering to the concepts contained within the patient's Treatment Agreement will be protected from such termination of care. Patient was given a copy of the Treatment Agreement, signed by patient on 08/29/19. Patient signed an opioid consent form on 08/29/19. Patient has refused offer of a Narcan nasal spray prescription. Urine Tox screen today; random screens per protocol 06/10/2022 Other 09/15/2022 Other 12/10/2022 Other 03/23/2023 Other 06/08/2023 Other PLAN OF TREATMENT Next Appt Details Provider Name:Flavio Cerda son, 08/03/2023 04:20:00 PM, [address] [facility], [place], [place], [id number], Insurance Providers Payer Name Payer Address Payer Phone Subscriber Number Group Number Insured Name Patient Relationship to Insured Coverage Start Date Coverage End Date [employer] 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 Oreilly at [facility] in [place], [place], 12/02/16 Colonsocopy, removal of tubu lar adenoma, performed at [facility] by Dr. Corona, 11/25/20 Hospitalization History Reason Date(Month/Year) Anaphylactic shock, 09/2014 Pneumonia, 09/2015
--- OUTSIDE RECORDS SUMMARY | 2023-06-10 07:46 | XMS_ITS | Patient Health Record ---
Author Name Unknown Organization [facility] Address [address] [place], [place] [id number] Care Team Providers Care Machine Cloth Examiner Name Role Phone Elliott CID, Haile Primary Care Provider [phone] Jess CID, Flavio Unavailable [phone] Alexx Bright DO Unavailable Unavailable Elliott SEWAGE SCREEN OPERATOR, Jojo Unavailable [phone] ALLERGIES Allergen (clinical drug ingredient) Drug/Non Drug Allergy documented on EMR Reaction Allergy Type Onset Date Status codeine codeine stomach upset Drug Allergy Act kit RESULTS Component Value Reference Range Notes Chirpme Results Reviewed date:09/07/2022 07:41:26 AM Interpretation: Performing Lab:[id number] [employer] [address] [facility] [id number] Heather Miner MD Notes/Report: [employer] [address], [facility] [address], [place] [address], , L ab Director: Chaz Garcia MD, CLIA ID# [id number] Codeine Quantification negative 50 ng/mL Morphine Quantification negative 50 ng/mL Hydrocodone Quantification negative 50 ng/mL Norhydrocodone Quantification negative 50 ng/mL Hydromorphone Quantification negative 50 ng/mL Oxycodone Quantification negative 50 ng/mL Noroxycodone Quantification negative 50 ng/mL Oxymorphone Quantification negative 50 ng/mL Buprenorphine Quantification negative 5 ng/mL Norbuprenorphine Quantification negative 20 ng/mL Fentanyl Quantification negative 1 ng/mL Norfentanyl Quantification negative 8 ng/mL Methadone Quantification negative 100 ng/mL EDDP (Methadone metabolite) Quantification negative 100 ng/mL Tramadol Quantification positive-8246.365 100 ng/mL M-pbrzkxrna-jembxkzd Quantification positive-44502.234 100 ng/mL K-Xzlznvban-Ohhkqztw Quantification positive-5123.618 100 ng/mL Tapentadol Quantification negative 50 ng/mL Meperidine Quantification negative 50 ng/mL Normeperidine Quantification negative 50 ng/mL Naltrexone Quantification negative 10 ng/mL Naltrexol Quantification negative 10 ng/mL Naloxone Quantification negative 20 Levorphanol / Dextrorphan Quantification positive-68.0 04 50 ng/mL 4-ANPP Quantification Fen Neg 2 ng/mL Acetyl fentanyl Quantification Fen Neg 2 ng/mL Acetyl norfentanyl Quantification Fen Neg 5 ng/mL Acryl fentanyl Quantification Fen Neg 1 ng/mL Carfentanil Quantification Fen Neg 2 ng/mL Para-fluorofentanyl Quantification Fen Neg 1 ng/m L CREATININE (CHEMICAL) normal-81.2 >20 mg/dL mg/dL OXIDANT normal-0 <200 ug/mL ug/mL PH normal-6.2 4.5 - 9.5 SPECIFIC GRAVITY normal-1.019 1.003 - 1.035 Embedded PDF Reviewed date:09/07/2022 07:41:37 AM Interpretation: Performing Lab: Notes/Report: 4-ANPP: Fentanyl Negative. Acetyl fentanyl: Fentanyl Negative. Acetyl norfentan yl: Fentanyl Negative. Acryl fentanyl: Fentanyl Negative. Carfentanil: Fentanyl Negative. Para-fluorofentanyl: Fentanyl Negative. [facility], [address] [address] [facility], [facility] [address] [address], , L ab Director: hCaz Garcia MD, CLIA ID# [id number] Urine tox screen / MS if ind icated Reviewed date:09/07/2022 07:42:17 AM Interpretation: Performing Lab: Notes/Report: Urine tox screen / MS if ind icated Reviewed date:03/08/2023 08:07:50 AM Interpretation:Consistent Performing Lab: Notes/Report: Consistent Embedded PDF Reviewed date:03/08/2023 08:04:44 AM Interpretation: Performing Lab: Notes/Report: 4-ANPP: Fentanyl Negative. Acetyl fentanyl: Fentanyl Negative. Acetyl norfentan yl: Fentanyl Negative. Acryl fentanyl: Fentanyl Negative. Carfentanil: Fentanyl Negative. Para-fluorofentanyl: Fentanyl Negative. [facility], [address], [facility] [address], [place] [address], , L ab Director: Leeanne Callaway MD, CLIA ID# [id number] Chirpme Results Reviewed date:03/08/2023 08:04:27 AM Interpretation: Performing Lab:[id number] [employer] [address] [place] [address] Leeanne Callaway MD Notes/Report: [employer] [address] [address] [facility], [facility] [address], [place] [address], , L ab Director: Leeanne Callaway MD, CLIA ID# [id number] Codeine Quantification negative 50 ng/mL Morphine Quantification negative 50 ng/mL Hydrocodone Quantification negative 50 ng/mL Norhydrocodone Quantification negative 50 ng/mL Hydromorphone Quantification negative 50 ng/mL Oxycodone Quantification negative 50 ng/mL Noroxycodone Quantification negative 50 ng/mL Oxymorphone Quantification negative 50 ng/mL Buprenorphine Quantification negative 5 ng/mL Norbuprenorphine Quantification negative 20 ng/mL Fentanyl Quantification negative 1 ng/mL Norfentanyl Quantification negative 8 ng/mL Methadone Quantification negative 100 ng/mL EDDP (Methadone metabolite) Quantification negative 100 ng/mL Tramadol Quantification positive-> 23683 100 ng/mL J-cfxnucusf-jvbdezlu Quantification positive-> 15105 1 00 ng/mL E-Hlwwcxubn-Aphvkwug Quantification positive-> 24006 1 00 ng/mL Tapentadol Quantification negative 50 ng/mL Meperidine Quantification negative 50 ng/mL Normeperidine Quantification negative 50 ng/mL Naltrexone Quantification negative 10 ng/mL Naltrexol Quantification negative 10 ng/mL Naloxone Quantification negative 20 Levorphanol / Dextrorphan Quantification positive-> 64 00 50 ng/mL 4-ANPP Quantification Fen Neg 2 ng/mL Acetyl fentanyl Quantification Fen Neg 2 ng/mL Acetyl norfentanyl Quantification Fen Neg 5 ng/mL Acryl fentanyl Quantification Fen Neg 1 ng/mL Carfentanil Quantification Fen Neg 2 ng/mL Para-fluorofentanyl Quantification Fen Neg 1 ng/m L CREATININE (CHEMICAL) normal-124.1 >20 mg/dL mg/dL OXIDANT normal-0 <200 ug/mL ug/mL PH normal-5.7 4.5 - 9.5 SPECIFIC GRAVITY normal-1.015 1.003 - 1.035 REASON FOR REFERRAL No Information MEDICATIONS Medication SIG (Take, Route, Frequency, Duration) Notes Start Date End Date Status aspirin 81 mg 1 tab orally once a day Active famotidine 20 mg 1 tab orally 2 times a day Active Vitamin D3 5000 intl units 1 cap orally as directed Active cetirizine 10 mg 1 tab orally once a day Active Vitamin C with Mara Hips 1000 mg orally as directed Active traMADol 50 mg 1-2 tabs orally Q4-6 H prn pain (max 6/day; hold within 4H of planned sleep) for 30 day(s) ICD-10: G89.29 03/04/2023 Active amLODIPine 5 mg 1 tab orally once a day Active Synthroid 175 mcg (0.175 mg) 1 tab orally once a day Active hydroxychloroquine 200 mg 1 tab(s) orall y once a day for 30 day(s) Active simvastatin 20 mg 1 tab orally once a day (at bedtime) Active gabapentin 600 mg 1 tab orally Q8H for 90 days Active One-A-Day Women Multiple Vitamins with Minerals 1 tab orally once a day Active metFORMIN 1000 mg 1 tab orally 2 times a day Active Levemir FlexPen 100 units/mL subcutaneously as directed Active Jardiance 10 mg 1 tab orally once a day (in the morning) Active HumaLOG KwikPen 100 units/mL subcutaneously as directed Active SOCIAL HISTORY Tobacco Use: Social History Observation Description Date Details (start date - stop date) Never Smoker NA - NA Sex Assigned At : Social History Observation Description Sex Assigned At Unknown alcohol Question Answer Notes Did you have a drink containing alcohol in the p ast year? 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) Active confirmed Long-term current use of drug therapy (108335267) Problem Pain in left foot (M79.672) Active confirmed Pain in left fo ot (630733545085354) Problem Pain in right foot (M79.671) Active confirmed Pain in right foot (741737871564037) Problem Type 2 diabetes mellitus with diabetic polyneuropathy (E11.42) Active confirmed Polyneuropathy due to type 2 diabetes mellitus (607359205) Problem Hypersomnia, unspecified (G47.10) Active confirmed Hypersomnia (62327468) Problem long-term (current) use of opiate analgesic (Z79.891) Active confirmed High risk drug monitoring status (264081313) Problem Other chronic pain (G89.29) Active confirmed Chronic pain (43038725) VITAL SIGNS Temperature 97.5 degrees Fahrenheit 03/04/2023 Oximetry 95 % 03/04/2023 Blood pressure diastolic 71 mm Hg 03/04/2023 Height 62 in 03/04/2023 Blood pressure systolic 129 mm Hg 03/04/2023 Weight 197 lbs 03/04/2023 BMI 36.03 kg/m2 03/04/2023 Encounters Encounter Location Date [facility] [address] [place], [place] [id number] 2022 Flaivo Mercado Type 2 diabetes mellitus with diabetic polyneuropathy E11.42 ; Pain in right foot M79.671 ; Pain in left foot M79.672 ; Hypersomnia, unspecified G47.10 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 Z79.891 [facility] [place], [place] [id number] 03/04/2023 Jojo Gallagher Type 2 diabetes mellitus with diabetic polyneuropathy E11.42 ; Other chronic pain G89.29 ; Pain in right foot M79.671 ; Pain in left foot M79.672 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 Plan to continue 03/04/2023 Other chronic pain (ICD-10 - G89.29) Patient reports that taking her pain medication allows her to stand during working hours. Plan to continue oral opioid medication management 2022 Pain in right foot (ICD-10 - M79.671) 2022 Pain in left foot (ICD-10 - M79.672) 03/04/2023 Pain in right foot (ICD-10 - M79.671) 2022 Hypersomnia, unspecified (ICD-10 - G47.10) [place] score of 15 noted upon review of prior sleep apnea screening tools. Patient has been counseled on the risks for sleep apnea, with or without opioid and / or other sedative usage, and the patient verbalized understanding and acceptance of the increased risk (addiction, sleep apnea, respiratory depression, ) with opioid and / or sedative substance usage. 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 This places the patient in the [facility] low risk category for opioid usage (not to be confused with the separate potential significant risk in regards to possible sleep apnea, above). Patient has received the Opioid Analgesic [facility]S Patient Counseling Guide. Patient has had opportunity to read the Guide and ask questions pertaining to the Guide. Patient was given a copy of the Treatment Agreement, signed by patient on 09/07/19. Patient was advised on 02/29/20 that due to the Federal Government concerns and actions, any suspected patient misuse, abuse, or diversion of controlled substances (i.e. opioids/narcotics/p ain killers) WILL result in dissolution of treatment from this clinic. Patients adhering to the concepts contained within the patient's Treatment Agreement will be protected from such termination of care. Patient signed an opioid consent form on 09/07/19. Patient has refused offer of a Narcan nasal spray prescription. Urine Tox screen today; random screens per protocol 03/04/2023 long-term (current) use of opiate analgesic (ICD-10 - Z79.891) 2022 opioid (OUD) risk tool score = 1. This places the patient in the low risk category. Plan urine toxicology screen today to monitor for presence of any unprescribed or illicit drugs and send specimen to an outside lab to monitor compliance regarding use of tramadol as testing is not available in this facility's lab 2022 Other 03/04/2023 Other PLAN OF TREATMENT Next Appt Details Provider Name:Flavio bergeron, 08/31/2023 11:30:00 AM, [address] [facility], [place], [place], [id number], Insurance Providers Payer Name Payer Address Payer Phone Subscriber Number Group Number Insured Name Patient Relationship to Insured Coverage Start Date Coverage End Date [employer] [address] [place] [address] [id number] Lisbeth Smith Self - patient is the insured [facility] [address] [place] [address] [id number] Douglas Smith Spouse - patient is the spouse of the insured MEDICAL (GENERAL) HISTORY Medical History History ICD Code Chronic pain Bilateral foot and lower extremity pain Fibromyalgia Diabetes mellitus type II Diabetic neuropathy Hyperlipidemia Hypothyroidism Hypertension Seborrheic dermatitis Depression Alpha-gal syndrome COVID-19 (03/2021) Obesity, moderate Surgical History Surgery Date(Month/Year) Hysterectomy Carpal tunnel release, bilateral section Hospitalization History Reason Date(Month/Year) Childbirth
[2023-06-10 08:19] VITALS: BP 142/86; PULSE 81; RESP 18; TEMP 36.4; O2SAT 95
[2023-06-10] MEDS: denosumab 60 mg SDV SUBCUT (08:26)
[2023-06-10 08:34] VITALS: BP 138/84; PULSE 84; RESP 18; TEMP 36.6; O2SAT 98
[2023-06-10 09:01] LABS: Glomerular Filtration Rate 103.8 mL/min (90-130)
[2023-06-10 09:16] LABS: 25 Hydroxy Vitamin D 19 ng/mL (30-100)
== END 2023-06-20 23:59 | disposition home or self-care (01) ==
PROVIDERS: Internal Medicine Rheumatology; PCP Internal Medicine; Visit Provider Internal Medicine Medical Oncology
DX: M81.0 Age-related osteoporosis without current pathological fracture (principal)
CPT/HCPCS: 82040; 82306; 82310; 82565; 96401; J0897

== ENCOUNTER 2023-12-21 07:58 | Oncology outpatient (recurring) (ONCR) | payer OTHER, SELFPAY ==
[2023-12-21] MEDS: denosumab 60 mg SDV SUBCUT (08:51)
[2023-12-21 08:57] VITALS: BP 161/83; PULSE 85; RESP 16; TEMP 36.4; O2SAT 98
[2023-12-21 09:25] LABS: Albumin Level 3.9 g/dL (3.5-5.2); Calcium 8.8 mg/dL (8.5-10.5); Glomerular Filtration Rate 127.6 mL/min (90-130)
== END 2024-01-19 23:59 | disposition home or self-care (01) ==
LOC: ONCMED 07:58
PROVIDERS: Internal Medicine Rheumatology; PCP Internal Medicine; Visit Provider Internal Medicine Medical Oncology
DX: M81.0 Age-related osteoporosis without current pathological fracture (principal)
CPT/HCPCS: 36415; 82040; 82310; 82565; 96372; J0897

== ENCOUNTER 2024-04-16 09:07 | Observation (INO) | payer OTHER, SELFPAY ==
[2024-04-16] VITALS (36 sets, daily range): BP systolic 107–195; BP diastolic 72–107; PULSE 73–91; RESP 13–26; TEMP 36.4–37; O2SAT 90–99; BMI 29.8
--- NOTE | 2024-04-16 09:21 | CTR_ITS ---
THIS REPORT CONTAINS FINDINGS THAT MAY BE CRITICAL TO PATIENT CARE. The findings were verbally communicated by me to Dr. Gabino Franco via telephone conference at 9:41 AM CDT on 04/16/2024. The findings were acknowledged and understood. PROCEDURE INFORMATION: Exam: CT Head Without Contrast Exam date and time: 04/16/2024 9:27 AM Age: 58 years old Clinical indication: Stroke-like symptoms; Dizziness/giddiness and visual disturbance; Additional info: Left lateral vison loss TECHNIQUE: Imaging protocol: Computed tomography of the head without contrast. Radiation optimization: All CT scans at this facility use at least one of these dose optimization techniques: automated exposure control; mA and/or kV adjustment per patient size (includes targeted exams where dose is matched to clinical indication); or iterative reconstruction. Other technique: STROKE PROTOCOL was implemented. COMPARISON: CT head wo con* [id number] 02/12/2022 5:25 AM RADIATION DOSE METRICS: Total DLP (mGy-cm): 1081.28 FINDINGS: Brain: Mild cortical loss inferior medial right occipital lobe with slight prominence of the contiguous subarachnoid space, best appreciated on the coronal images. Fenestration of the septum pellucidum redemonstrated. Small right globus pallidus calcification. Small right basal forebrain benign perivascular cyst. No definite acute infarction. No hemorrhage. No mass. No edema. redemonstrated. Ventricles: No hydrocephalus or evidence of increased intracranial pressure. Paranasal sinuses: Visualized sinuses are unremarkable. No fluid levels. Mastoid air cells: Visualized mastoid air cells are well aerated. Bones: Unremarkable. No acute fracture. Soft tissues: Unremarkable. Vasculature: Atherosclerotic calcifications are present involving the left carotid artery siphon. CT/CT head wo con* [id number] IMPRESSION: Small chronic appearing right occipital lobe infarction. MRI may be helpful given the acute nature of the patient's left visual loss. ASSESSMENT: ASPECTS ([place] Stroke Program Early CT Score) is 10 (no MCA infarction).
--- NOTE | 2024-04-16 09:24 | W.ED.GENADLT ---
HPI - General Adult General: Chief complaint: Headache Stated complaint: left eye vision has changed, headache Time Seen by Provider: 04/16/24 09:21 History of Present Illness: Patient presents to the ER after complaining of having headache, high blood pressure standing getting her hair ready this morning felt she is going to pass out went into tunnel vision and when it came back her left side of her lateral vision on her left eye did not return. Patient said this is very fuzzy and blurry and she cannot see hardly anything at all out of the lateral side of the left eye. Related Data Home Medications Medication Instructions Recorded Confirmed epinephrine 0.3 mg/0.3 mL 0.3 mg IM Q30M PRN Allergy Symptoms 07/25/19 02/16/22 injection, auto-injector (EpiPen 2-Dudley) denosumab 60 mg/mL subcutaneous 60 mg SUBCUT .every 6 months 01/18/20 02/16/22 syringe (Prolia) fluticasone propionate 50 2 spray intranasal DAILY PRN 12/10/21 02/16/22 mcg/actuation nasal spray,suspension (Flonase Allergy Relief) Previous Rx's Medication Instructions Recorded montelukast 10 mg tablet 10 mg PO DAILY #30 tabs 11/11/21 levocetirizine 5 mg tablet 10 mg (2 x 5 mg) PO DAILY #180 tabs 12/10/21 prednisone 50 mg tablet 50 mg PO DAILY #5 tabs 02/12/22 mirtazapine 15 mg tablet (Remeron) 15 mg PO .at bedtime 90 days #90 04/27/22 tabs cholecalciferol (vitamin D3) 1,250 1,250 mcg PO .COMPLEX #36 caps 06/15/23 mcg (50,000 unit) capsule Allergies Allergy/AdvReac Type Severity Reaction Status Date / Time azithromycin Allergy Severe ALGY-Anaphy Verified 02/16/22 15:34 laxis amoxicillin [From Augmentin] Allergy Unknown Verified 02/16/22 15:34 ciprofloxacin [From Cipro] Allergy Unknown Verified 02/16/22 15:34 clavulanic acid Allergy Unknown Verified 02/16/22 15:34 [From Augmentin] codeine Allergy unknown Verified 02/16/22 15:34 iodine Allergy Unknown Verified 02/16/22 15:34 norfloxacin [From Noroxin] Allergy Unknown Verified 02/16/22 15:34 NSAIDS (Non-Steroidal Allergy Unknown Verified 02/16/22 15:34 Anti-Inflamma Penicillins Allergy Unknown Verified 02/16/22 15:34 Sulfa (Sulfonamide Allergy Unknown Verified 02/16/22 15:34 Antibiotics) Review of Systems General: Reports: 10 or more systems reviewed and unremarkable except in HPI and below PFSH ED PFSH: Medical History Low vitamin D level High risk medication use Chronic pain 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 Insomnia Osteoporosis Surgical History History of hysterectomy History of surgery on wrist History of oral surgery SALVILARY GLAND REMOVAL ON LEFT History of breast biopsy History of tonsillectomy History of colonoscopy with polypectomy 12/14/2012 Family History Other CAD (coronary artery disease) Cancer Diabetes Heart disease Stroke Denies family history of Rheumatoid arthritis Lupus Chronic kidney disease (CKD) Lung disease Hypertension Social History Smoking and tobacco/nicotine status: current every day tobacco/nicotine user Alcohol intake: never Substance/Drug Use: never Marital status: Physical Exam Const: COMMON NORMALS: no acute distress, average body habitus, patient oriented x3, no limitations, healthy appearing, alert and well nourished HENMT: COMMON NORMALS: normocephalic, atraumatic, hearing grossly normal bilaterally, external ears normal, Normal external nose present and moist oral mucous membranes HEAD & SCALP: normocephalic and atraumatic NOSE: Normal external nose present EXTERNAL EAR: Yes external ears normal Eye: COMMON NORMALS: Equal, round and reactive pupils present, EOMs intact bilaterally, conjunctivae normal and no scleral icterus CONJUNCTIVA: Yes conjunctivae normal PUPIL: Yes Equal, round and reactive pupils present OTHER: Decrease in vision the lateral field of the left eye, Neck/C-Spine: COMMON NORMALS: full ROM, no lymphadenopathy, supple, no meningeal signs, no JVD and Thyroid normal THYROID: Thyroid normal Chest: COMMONS NORMALS: normal inspection of the chest and normal palpation of entire chest wall Resp: COMMON NORMALS: normal respiratory effort, No retractions, No use of accessory muscles and clear to auscultation bilaterally AUSCULTATION: clear to auscultation bilaterally Cardio: COMMON NORMALS: no JVD, regular rate, regular rhythm, S1 normal heart sound present, S2 normal heart sound present, No gallops present (Cardio), No clicks present (Cardio), No murmurs present (Cardio) and No rub (Cardio) RATE: regular rate RHYTHM: regular rhythm HEART SOUNDS: S1 normal heart sound present and S2 normal heart sound present GI: COMMON NORMALS: Normal to inspection, nondistended, normoactive bowel sounds present, Soft to palpation, non-tender, No hepatosplenomegaly present and no masses PALPATION: Yes Soft to palpation and Yes No hepatosplenomegaly present Neuro: COMMON NORMALS: patient oriented x3 SENSORIUM/ORIENTATION: Yes alert MENINGEAL SIGNS: Yes no meningeal signs Course Vital Signs: Vital signs: Vital Signs Temperature 98.6 F 04/16/24 09:23 Pulse Rate 77 04/16/24 10:52 Respiratory Rate 18 04/16/24 10:00 Blood Pressure 154/78 04/16/24 10:52 Pulse Oximetry 97 04/16/24 10:52 Oxygen Delivery Me thod Room Air 04/16/24 10:52 MDM - General Adult Medical Decision Making Code stroke was called, patient was taken down to the CT scan immediately. Lab work was obtained, Dr. Oliva was notified, we did give the patient TNKase as well as 500 mg of IV Depacon and 10 mg labetalol. Vision was improving. Dr. Portillo was notified who agreed to take the patient in ICU. Medical Records I reviewed the patient's medical records. Lab Data I reviewed the patient's lab results. 04/16/24 09:55 04/16/24 09:[address] 04/16/24 09:21 IMPRESSION: Small chronic appearing right occipital lobe infarction. MRI may be helpful given the acute nature of the patient's left visual loss. ASSESSMENT: ASPECTS ([place] Stroke Program Early CT Score) is 10 (no MCA infarction). Chest X-Ray 04/16/24 09:48 IMPRESSION: No acute findings. Laboratory Results WBC 7.84 10^3/uL (3.29-11.43) 04/16/24 09:55 RBC 4.84 10^6/uL (3.85-5.65) 04/16/24 09:55 Hgb 15.00 g/dL (11.27-16.99) 04/16/24 09:55 Hct 45.5 % (36-47) 04/16/24 09:55 MCV 94.0 fl (85-98) 04/16/24 09:55 MCH 31.0 pg (27-33) 04/16/24 09:55 MCHC 33.0 g/dL (30-55) 04/16/24 09:55 RDW 11.9 % (12.1-15.1) L 04/16/24 09:55 Plt Count 233 10^3/cmm (157-399) 04/16/24 09:55 MPV 8.8 fL (7.4-10.4) 04/16/24 09:55 Neut % (Auto) 58.6 % 04/16/24 09:55 Lymph % (Auto) 34.2 % 04/16/24 09:55 [place] % (Auto) 5.5 % 04/16/24 09:55 Eos % (Auto) 1.0 % 04/16/24 09:55 Baso % (Auto) 0.4 % 04/16/24 09:55 Neut # (Auto) 4.60 10^3/uL (1.8-7.7) 04/16/24 09:55 Lymph # (Auto) 2.7 10^3/uL (0.8-4.8) 04/16/24 09:55 [place] # (Auto) 0.4 10^3/uL (0.2-0.9) 04/16/24 09:55 Eos # (Auto) 0.1 10^3/uL (0.0-0.8) 04/16/24 09:55 Baso # (Auto) 0.0 10^3/uL (0.0-0.1) 04/16/24 09:55 Nucleated RBC % (auto) 0 % 04/16/24 09:55 Nucleated RBCs # 0.0 /100WBC 04/16/24 09:55 PT 12.70 SECONDS (12.1-14.9) 04/16/24 09:55 INR 0.92 (0.8-1.2) 04/16/24 09:55 Sodium 137 mmol/L (136-145) 04/16/24 09:55 Potassium 3.7 mmol/L (3.5-5.1) 04/16/24 09:55 Chloride 101 mmol/L (98-107) 04/16/24 09:55 Carbon Dioxide 24 mmol/L (22-29) 04/16/24 09:55 Anion Gap 15.7 (5-19) 04/16/24 09:55 BUN 14 mg/dL (6-20) 04/16/24 09:55 Creatinine 0.6 mg/dL (0.5-0.9) 04/16/24 09:55 GFR Calculation 103.4 mL/min (90-130) 04/16/24 09:55 Glucose 172 mg/dL (65-115) H 04/16/24 09:55 POC Glucose 162 mg/dL (70-110) H 04/16/24 09:34 Calculated Osmolality 289 mOsm/kg (285-295) 04/16/24 09:55 Calcium 9.3 mg/dL (8.5-10.5) 04/16/24 09:55 Magnesium 2.2 mg/dL (1.7-2.3) 04/16/24 09:55 Total Bilirubin 0.3 mg/dL (0.15-1.2) 04/16/24 09:55 AST 13 U/L (0-32) 04/16/24 09:55 ALT 10 U/L (0-33) 04/16/24 09:55 Alkaline Phosphatase 75 U/L (35-105) 04/16/24 09:55 Troponin T Baseline < 6 ng/L (0-10) 04/16/24 09:55 C-Reactive Protein 5.5 mg/L (0.0-4.9) H 04/16/24 09:55 Total Protein 7.5 g/dL (6.6-8.7) 04/16/24 09:55 Albumin 4.4 g/dL (3.5-5.2) 04/16/24 09:55 Globulin 3.1 g/dL (1.3-4.6) 04/16/24 09:55 TSH 1.15 uIU/mL (0.27-4.20) 04/16/24 09:55 All radiology interpretation(s) finalized by discharge Discharge Plan Discharge Patient Disposition: Admitted As Inpatient Admit Provider: Niels Griggs Clinical Impression: Acute CVA (cerebrovascular accident), Hypertension, Headache Condition: Stable Coding Level of Care Code ED Machine Heel Sprayer for Cyg Wilfredo NIH stroke score NIHSS Level Of Consciousness - 1a: 0 Level Of Consciousness Questions - 1b: Both Correct Level Of Consciousness Commands - 1c: Both Correct Best Gaze - 2: Normal Visual Summers - 3: Partial Hemianopia Facial Palsy - 4: Normal Motor Arm Right - 5: No Drift Motor Arm Left - 5: No Drift Motor Leg Right - 6: No Drift Motor Leg Left - 6: No Drift Limb Ataxia - 7: Absent Sensory - 8: Normal Best Language - 9: No Aphasia Dysarthia - 10: Normal Extinction And Inattention - 11: 0 Score Total Score: 1
[2024-04-16 09:40] LABS: Glucose Point of Care 162 mg/dL (70-110)
--- NOTE | 2024-04-16 09:48 | XRR_ITS ---
PROCEDURE INFORMATION: Exam: XR Chest Exam date and time: 04/16/2024 10:01 AM Age: 58 years old Clinical indication: Dyspnea; Additional info: CVA TECHNIQUE: Imaging protocol: Radiologic exam of the chest. Views: 1 view. COMPARISON: No relevant prior studies available. FINDINGS: Lungs: Unremarkable. No consolidation. Pleural spaces: Unremarkable. No pleural effusion. No pneumothorax. Heart/Mediastinum: Unremarkable. No cardiomegaly. Bones/joints: Unremarkable. XR/XR chest 1V portable [id number] IMPRESSION: No acute findings.
[2024-04-16] MEDS: tenecteplase 50mg Kit (STROKE) 21 MG IVP (09:58)
[2024-04-16 10:03] LABS: Basophils % 0.4 %; Eosinophils # 0.1 10^3/uL (0.0-0.8); Hematocrit 45.5 % (36-47); Lymphocytes # 2.7 10^3/uL (0.8-4.8); Lymphocytes % 34.2 %; Mean Platelet Volume 8.8 fL (7.4-10.4); Monocytes # 0.4 10^3/uL (0.2-0.9); Monocytes % 5.5 %; Neutrophils % 58.6 %; Nucleated Red Blood Cells % 0 %; Platelet Count 233 10^3/cmm (157-399); Red Blood Count 4.84 10^6/uL (3.85-5.65); Red Cell Distribution Width 11.9 % (12.1-15.1); White Blood Count 7.84 10^3/uL (3.29-11.43)
--- NOTE | 2024-04-16 10:04 | PC.NURSE ---
WHILE GIVING TNKASE, PATIENT COMPLAINS OF WORSENING HEADACHE AND INCREASED DIZZINESS.
--- NOTE | 2024-04-16 10:07 | P.PNCC_ITS ---
Stroke Alert Activation ED Arrival Date: 04/16/24 ED Arrival Time: 09:23 ED Physican at Bedside: :26 Last Known Normal/at Baseline: 1-2 hours ago Other Last Known Well Infomation: 58-year-old woman was getting dressed an d moving about her home at 30 when she developed sudden onset of visual changes on the left and an unusual headache. She arrived at 03 13 and was evaluated by Dr. Franco, who activated stroke alert at 03 16. I received a text and phone call, both of which I missed, but Dr. Franco called me at and reviewed the story and I agreed that the patient should immediately receive TNK based upon the fact that she had a left homonymous hemianopsia that he identified, no acute changes on CT of the head and blood pressure within acceptable limits. Patient received bolus of TNK at 10 AM, coincident with my arrival. While receiving TNKase she complained of worsening headache and increased dizziness. Stroke Alert Activated by: Dr. Franco Stroke Alert Activation Time: : Stroke MD @ Bedside Time: 10:00 NIH stroke score NIHSS: Level Of Consciousness - 1a: 0 Level Of Consciousness Questions - 1b: Both Correct Level Of Consciousness Commands - 1c: Both Correct Best Gaze - 2: Normal Visual Summers - 3: Complete Hemianopia Facial Palsy - 4: Normal Motor Arm Right - 5: No Drift Motor Arm Left - 5: No Drift Motor Leg Right - 6: No Drift Motor Leg Left - 6: No Drift Limb Ataxia - 7: Absent Sensory - 8: Normal Best Language - 9: No Aphasia Dysarthia - 10: Normal Extinction And Inattention - 11: 0 Score: Total Score: 2 Stroke Alert Data/Treatment Time to CT of Head: 09:21 CT Results Time: 09:41 CT Impression: looks normal to me. radiologist sees old small rpca infarct. 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 At 08 30 she was brushing her teeth when suddenly she developed a headache and lost vision to the left. She was seen here within 1 hour of onset of symptoms and promptly worked up for stroke. Her left homonymous hemianopsia was evident to Dr. Franco and after further discussion we agreed to treat with TNK. The order was given for TNK bolus at 09 45 and she was treated at 10 AM after discussing risks and benefits.. On current exam she continues to display dense left homonymous hemianopsia but no other findings. She is still suffering a headache. Plan on treating her headache with Depacon 500 mg IV. Her blood pressure is elevated currently will systolic 182 and I gave an order for labetalol 10 mg IV and it was given during my stay. If Depacon does not relieve her headache I would advocate for 250 mg of Solu- Medrol IV. The patient is allergic to contrast dye. Recommend MR angiogram tomorrow after 20 mg of Valium p.o. for severe claustrophobia Plavix, aspirin to be started within 24 hours. Start a atorvastatin now. 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
[2024-04-16 10:14] LABS: INR 0.92 (0.8-1.2)
[2024-04-16 10:20] LABS: Troponin(5th) Baseline < 6 ng/L (0-10)
[2024-04-16] MEDS: labetalol 5 mg/mL SDV 20mL 10 MG IVP (10:23)
[2024-04-16] MEDS: valproic acid inj 500 MG in sodium chloride 0.9% 50 ML 55 MG IV ×2 (10:34→16:09)
--- NOTE | 2024-04-16 10:35 | ECG_ITS ---
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 Measurements Intervals [place] Rate: 74 P: 10 MS: 163 QRS: 56 QRSD: 101 T: 56 QT: 405 QTc: 451 Interpretive Statements SINUS RHYTHM Compared to ECG 10/11/2015 05:38:15 Sinus tachycardia no longer present T-wave abnormality no longer present Electronically Signed On 04-17-2024 00:01:27 CDT by Teofilo Parker M.D. [id number]
[2024-04-16 10:47] LABS: Alanine Aminotransferase 10 U/L (0-33); Albumin Level 4.4 g/dL (3.5-5.2); Alkaline Phosphatase 75 U/L (35-105); Anion Gap 15.7 (5-19); Aspartate Amino Transferase 13 U/L (0-32); Blood Urea Nitrogen 14 mg/dL (6-20); C Reactive Protein 5.5 mg/L (0.0-4.9); Calcium 9.3 mg/dL (8.5-10.5); Carbon Dioxide 24 mmol/L (22-29); Chloride 101 mmol/L (98-107); Globulin 3.1 g/dL (1.3-4.6); Glomerular Filtration Rate 103.4 mL/min (90-130); Glucose 172 mg/dL (65-115); Magnesium 2.2 mg/dL (1.7-2.3); Osmolality Calculated 289 mOsm/kg (285-295); Potassium 3.7 mmol/L (3.5-5.1); Sodium 137 mmol/L (136-145); Thyroid Stimulating Hormone 1.15 uIU/mL (0.27-4.20); Total Bilirubin 0.3 mg/dL (0.15-1.2); Total Protein 7.5 g/dL (6.6-8.7)
--- NOTE | 2024-04-16 10:48 | PC.NURSE ---
PT REPORTS WORSENING HEADACHE AND THAT HER VISION IS CLEARING. DR. DOUGLAS NOTIFIED.
--- NOTE | 2024-04-16 10:57 | USCV_ITS ---
Luis Lisbeth Age: 58 Gender: F : 1965 Exam Date: 04/16/2024 17:09 Ordering Phys: Niels Griggs MD Technologist: Toby Yi Exam Location: [facility] [place] Indication: CVA BP: 165 / 110 HR: 81 Rhythm: Sinus Technical Quality: Adequate MEASUREMENTS (Male / Female) Normal Values 2D ECHO LV Diastolic Diameter PLAX 3.7 cm 4.2 - 5.9 / 3.9 - 5.3 cm IVS Diastolic Thickness 0.9 cm 0.6 - 1.0 / 0.6 - 0.9 cm IVS Systolic Thickness 2.0 cm LVPW Diastolic Thickness 1.3 cm 0.6 - 1.0 / 0.6 - 0.9 cm LVPW Systolic Thickness 1.5 cm LVOT Diameter 2.0 cm LV Ejection Fraction 2D Teich 77.6 % LV Ejection Fraction MOD 4C 66.1 % LV Ejection Fraction MOD 2C 59.9 % LV Ejection Fraction 2C AL 60.3 % RA Systolic Volume 4C AL 33.6 ml RA Systolic Volume 4C MOD 33.9 ml LA Sys Volume AL 51.0 cm cubed LA Sys Volume Index AL 26.8 cm cubed/m squared IVC Diameter 2.0 cm M-MODE LA Ao Ratio MM 1.3 AV Cusp Separation MM 2.0 cm DOPPLER AV Peak Velocity 133.0 cm/s LVOT Peak Velocity 89.0 cm/s AV Area Cont Eq vti 1.9 cm squared AV Area Cont Eq pk 2.1 cm squared MV Peak Velocity 105.0 cm/s MV Area PHT 6.7 cm squared Mitral E to A Ratio 0.9 TR Peak Velocity 87.0 cm/s TR Peak Gradient 3.0 mmHg TR Mean Velocity 55.0 cm/s TR Mean Gradient 1.5 mmHg TR Velocity Time Integral 19.0 cm PV Peak Velocity 92.0 cm/s RV Ejection Time 0.3 s FINDINGS Left Ventricle Normal left ventricular size and systolic function, EF 60%. No gross wall motion normalities.Grade I/IV diastolic dysfunction (abnormal relaxation filling pattern), normal to mildly elevated filling pressures. Right Ventricle The right ventricle is normal in size and function. Right Atrium The right atrium is normal in size. Left Atrium The left atrium is normal in size. Mitral Valve Mild mitral annular calcification. Aortic Valve No gross abnormalities noted Tricuspid Valve No gross abnormalities noted Pulmonic Valve No gross abnormalities noted Pericardium Normal pericardium without effusion. Aorta Normal ascending aorta dimension. IVC The inferior vena cava appears normal. CONCLUSIONS Normal left ventricular size and systolic function, EF 60%. No gross wall motion normalities.Grade I/IV diastolic dysfunction (abnormal relaxation filling pattern), normal to mildly elevated filling pressures. No gross valvular abnormalities. Normal cardiac chamber sizes. There is no pericardial effusion. There are no intracardiac masses. No similar previous studies are available for comparison Dr Teofilo Parker MD [facility] (Electronically Signed) Final Date: 17 April 2024 13:04 S
[2024-04-16 11:07] LABS: Erythrocyte Sedimentation Rate 38 mm/hr (0-15)
[2024-04-16 11:31] LABS: Bilirubin Urine Negative (Negative); Blood Urine Negative (Negative); Glucose Urine UA Negative (Normal); Ketones Urine Negative (Negative); Leukocyte Esterase Urine Negative (Negative); Nitrate Urine Negative (Negative); Protein Urine Negative (Negative); Specific Gravity, Urine 1.009 (1.005-1.030); Urine Appearance Cloudy (CLEAR); Urine Color Yellow (Yellow); Urobilinogen Urine 0.2 mg/dL (Negative)
[2024-04-16 11:46] LABS: UA Manual Slide Review YES
[2024-04-16 11:47] LABS: Add Urine Microscopic? YES; Amorphous Sediment Urine TRACE /hpf; Bacteria Urine 1+ /hpf; Hyaline Casts Urine 0-4 /lpf; RBC Urine 0-4 /hpf (0-2); Squamous Epithelial Cell Urine 0-4 /hpf (0-5); WBC Urine 0-4 /hpf (0-5)
[2024-04-16 12:35] LABS: Troponin 5 2HR Delta 0.40001 ABS# (0-10)
--- NOTE | 2024-04-16 12:54 | ECG_ITS ---
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 Measurements Intervals [place] Rate: 74 P: 60 DE: 169 QRS: 67 QRSD: 91 T: 71 QT: 399 QTc: 444 Interpretive Statements SINUS RHYTHM Compared to ECG 04/16/2024 10:35:29 No significant changes Electronically Signed On 04-17-2024 00:01:30 CDT by Teofilo Parker M.D. [id number]
--- NOTE | 2024-04-16 13:16 | P.HP_ITS ---
Providers/Chief Complaint 2 Admitting Physician: Niels Griggs MD Primary Care Provider: Saul Corona MD Chief Complaint: left eye vision has changed, headache History of Present Illness Lisbeth Smith is a 58 year old female who presents with a past medical history of hypertension osteoporosis, who presents to [facility] due to sudden onset visual loss. Patient tells me that at about 830, she was getting dressed, when she suddenly developed left sided vision loss, and a headache, no facial droop, no slurring of words, no word finding difficulty, no focal weakness, she was brought in by private vehicle and actually walked into the ER, no balance issues, no other focal neurologic deficits, CT head no acute bleed, she was evaluated, NIH stroke scale 2, given TNKase at 10 AM, upon my arrival, she is alert oriented x 4, no facial, no slurring her words continues to have left-sided hemianopsia, she is complaining of a headache, she has received 500 mg of Depakote, no focal neurologic deficits on examination, [id number] and [id number] is normal bilaterally, good strength in upper and lower extremities she denies a prior history of stroke, denies a history of CAD, she does report, few years ago, she had a Apple Watch on and it showed episodes of atrial fibrillation, she has not had issues since then, denies a prior history of strokes, TIA, denies history of migraine headaches Review of Systems 2 Const: Denies: fever(s) or chills Card: Denies: chest pain Resp: Denies: dyspnea GI: Denies: abdominal pain : Denies: flank pain Musc: Denies: neck pain Neuro: Reports: headache(s); Denies: numbness in extremities, weakness in extremities, sensory changes, lack of coordination, difficulty walking, frequent falls, dizziness, vertigo, Slurred speech present or difficulty communicating thoughts Psych: Reports: anxiety Medications/Allergies Home Medications Medication Instructions Recorded Confirmed Last Taken Type epinephrine 0.3 mg/0.3 mL 0.3 mg IM Q30M PRN Allergy Symptoms 07/25/19 02/16/22 Unknown History injection, auto-injector (EpiPen 2-Dudley) denosumab 60 mg/mL subcutaneous 60 mg SUBCUT .every 6 months 01/18/20 02/16/22 10/14/20 History syringe (Prolia) montelukast 10 mg tablet 10 mg PO DAILY #30 tabs 11/11/21 02/16/22 Unknown Rx fluticasone propionate 50 2 spray intranasal DAILY PRN 12/10/21 02/16/22 Unknown History mcg/actuation nasal spray,suspension (Flonase Allergy Relief) levocetirizine 5 mg tablet 10 mg (2 x 5 mg) PO DAILY #180 tabs 12/10/21 02/16/22 Unknown Rx prednisone 50 mg tablet 50 mg PO DAILY #5 tabs 02/12/22 02/16/22 Unknown Rx mirtazapine 15 mg tablet (Remeron) 15 mg PO .at bedtime 90 days #90 04/27/22 Unknown Rx tabs cholecalciferol (vitamin D3) 1,250 1,250 mcg PO .COMPLEX #36 caps 06/15/23 Unknown Rx mcg (50,000 unit) capsule Allergies Allergy/AdvReac Type Severity Reaction Status Date / Time azithromycin Allergy Severe ALGY-Anaphy Verified 02/16/22 15:34 laxis amoxicillin [From Augmentin] Allergy Unknown Verified 02/16/22 15:34 ciprofloxacin [From Cipro] Allergy Unknown Verified 02/16/22 15:34 clavulanic acid Allergy Unknown Verified 02/16/22 15:34 [From Augmentin] codeine Allergy unknown Verified 02/16/22 15:34 iodine Allergy Unknown Verified 02/16/22 15:34 norfloxacin [From Noroxin] Allergy Unknown Verified 02/16/22 15:34 NSAIDS (Non-Steroidal Allergy Unknown Verified 02/16/22 15:34 Anti-Inflamma Penicillins Allergy Unknown Verified 02/16/22 15:34 Sulfa (Sulfonamide Allergy Unknown Verified 02/16/22 15:34 Antibiotics) PFSH Acute 2 PFSH: Medical History Low vitamin D level High risk medication use Chronic pain 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 Insomnia Osteoporosis Surgical History History of hysterectomy History of surgery on wrist History of oral surgery SALVILARY GLAND REMOVAL ON LEFT History of breast biopsy History of tonsillectomy History of colonoscopy with polypectomy 12/14/2012 Family History Other CAD (coronary artery disease) Cancer Diabetes Heart disease Stroke Denies family history of Rheumatoid arthritis Lupus Chronic kidney disease (CKD) Lung disease Hypertension Social History Smoking and tobacco/nicotine status: current every day tobacco/nicotine user Alcohol intake: never Substance/Drug Use: never Marital status: Vitals/I&O/Wt Last Vital Signs Temp 97.5 F L 04/16/24 11:00 Pulse 78 04/16/24 11:49 Resp 18 04/16/24 11:30 BP 146/90 04/16/24 12:00 Pulse Ox 98 04/16/24 12:07 O2 Del Method Room Air 04/16/24 12:07 Weight last 48 hrs Weight 76.476 kg Weight 76.476 kg Weight 83.915 kg Physical Exam 2 Const: COMMON NORMALS: no acute distress and patient oriented x3 HENMT: COMMON NORMALS: normocephalic HEAD & SCALP: normocephalic Eye: COMMON NORMALS: Equal, round and reactive pupils present and EOMs intact bilaterally OTHER: Left-sided homonymous hemianopsia Neck/C-Spine: COMMON NORMALS: no JVD Resp: COMMON NORMALS: normal respiratory effort, No retractions, No use of accessory muscles and clear to auscultation bilaterally AUSCULTATION: clear to auscultation bilaterally Cardio: COMMON NORMALS: no JVD, regular rate, regular rhythm, S1 normal heart sound present and S2 normal heart sound present RATE: regular rate RHYTHM: regular rhythm HEART SOUNDS: S1 normal heart sound present and S2 normal heart sound present GI: COMMON NORMALS: Normal to inspection, nondistended, normoactive bowel sounds present, Soft to palpation, non-tender, No hepatosplenomegaly present, no masses and no bruits PALPATION: Yes Soft to palpation and Yes No hepatosplenomegaly present Extremity: COMMON NORMALS: no calf tenderness and no pedal edema Neuro: COMMON NORMALS: patient oriented x3, CN's II-XII intact bilaterally, moves all extremities and no focal motor deficits Psych: COMMON NORMALS: mental status grossly normal Data 04/16/24 09:55 04/16/24 09:55 A&P Assessment and plan (1) Acute right arterial ischemic stroke, 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 MRI may be helpful given the acute nature of the patient's left visual loss Plan ? Monitor in ICU ? tPA precautions ? Repeat head CT in 24 hours ? Start statin ? Start aspirin and Plavix tomorrow ? IV fluids ? Neurochecks ? NIH stroke scale ? Aspiration precautions ? Speech therapy eval ? PT OT ? Treat systolic blood pressure of greater than 180, diastolic if greater than 105 ? IV fluids ? Cardiac echo ? MRI/MRA head and neck ordered for tomorrow ? CODE STATUS, DNR/DNI, confirmed with patient multiple times, does not want heroic measures ? SCDs for DVT prophylaxis, will start Lovenox tomorrow once head CT is within normal limits Headache ? Status post 500 mg IV Depacon ? 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
[2024-04-16] MEDS: pantoprazole 40 mg SDV IVP (13:28)
[2024-04-16] MEDS: morphine 4 mg/mL SDV 1 mL 1 MG IVP (14:37)
[2024-04-16] MEDS: methylPREDNISolone sod succ 125 mg/2 mL INJ 250 MG IVP (14:37)
--- NOTE | 2024-04-16 15:16 | CTR_ITS ---
PROCEDURE INFORMATION: Exam: CT Head Without Contrast Exam date and time: 04/16/2024 4:14 PM Age: 58 years old Clinical indication: Pain; Altered mental status/memory loss; Headache; Additional info: AMS TECHNIQUE: Imaging protocol: Computed tomography of the head without contrast. Radiation optimization: All CT scans at this facility use at least one of these dose optimization techniques: automated exposure control; mA and/or kV adjustment per patient size (includes targeted exams where dose is matched to clinical indication); or iterative reconstruction. COMPARISON: CT head wo con* [id number] 04/16/2024 9:27 AM RADIATION DOSE METRICS: Total DLP (mGy-cm): 1116.08 FINDINGS: Brain: Small chronic inferior medial right occipital lobe infarction again demonstrated, stable. Fenestration of the septum pellucidum. No intracranial hemorrhage. No mass. No acute infarction. Ventricles: No hydrocephalus or evidence of increased intracranial pressure. Paranasal sinuses: Visualized sinuses are unremarkable. No fluid levels. Mastoid air cells: Visualized mastoid air cells are well aerated. Bones: Unremarkable. No acute fracture. Soft tissues: Unremarkable. Vasculature: Atherosclerotic calcifications are present involving the left carotid artery siphon. CT/CT head wo con* [id number] IMPRESSION: 1. Small chronic inferior medial right occipital lobe infarction, stable. 2. No acute intracranial abnormality identified.
[2024-04-16] MEDS: diphenhydrAMINE 50 mg/mL SDV 1mL 25 MG IVP (15:32)
[2024-04-16] MEDS: metoclopramide 5 mg/mL SDV 2 mL IM (15:32)
[2024-04-16 15:48] LABS: C Reactive Protein 5.2 mg/L (0.0-4.9)
[2024-04-16] MEDS: dihydroergotamine 1 mg/mL Inj 0.5 MG IVP (15:50)
[2024-04-16 15:55] LABS: Procalcitonin 0.02 ng/mL (0-0.5)
[2024-04-16] MEDS: morphine 4 mg/mL SDV 1 mL IVP (16:08)
--- NOTE | 2024-04-16 18:18 | PC.NURSE ---
Pt was educated on the importance of bed rest after TNKase but still wanted to use the toilet in room. Patient was assisted to tiolet and then back to bed.
--- NOTE | 2024-04-16 18:21 | ECG_ITS ---
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 Measurements Intervals [place] Rate: 80 P: 37 MN: 151 QRS: 71 QRSD: 91 T: 73 QT: 389 QTc: 451 Interpretive Statements SINUS RHYTHM Compared to ECG 04/16/2024 12:54:16 No significant changes Electronically Signed On 04-17-2024 00:01:33 CDT by Teofilo Parker M.D. [id number]
[2024-04-16] MEDS: HYDROmorphone 1 mg/mL INJ 1 mL SUBCUT (18:30)
[2024-04-16 19:39] LABS: Troponin 5 6HR Delta 0.00001 ng/L (0-12)
[2024-04-16] MEDS: HYDROmorphone 1 mg/mL INJ 1 mL IV (20:11)
[2024-04-16] MEDS: atorvastatin 40 mg Tablet PO (20:11)
[2024-04-16] MEDS: acetaminophen 325 mg Tablet 650 MG PO (21:03)
--- NOTE | 2024-04-16 21:27 | PC.NURSE ---
Refusing Bedpan: Educated pt on fall risk status related to high risk medications. Pt adamantly refused to use the bedpan and bedside commode, she states she had a bad experience in the past. Pt was ambulated to bathroom for toileting. Pt agrees to not get out of bed on her own and to use the call light. Pt verbalized understanding of all education.
[2024-04-16 21:32] LABS: Glucose Point of Care 277 mg/dL (70-110)
[2024-04-17] VITALS: BP 146/81; PULSE 91; RESP 18; TEMP 36.6; O2SAT 91
[2024-04-17 01:00] VITALS: BP 148/84; PULSE 88; RESP 17; O2SAT 90
[2024-04-17] MEDS: ondansetron 2 mg/ML SDV 2 mL 4 MG IVP (01:06)
[2024-04-17] MEDS: dihydroergotamine 1 mg/mL Inj 0.5 MG IVP ×2 (01:13→01:36)
--- NOTE | 2024-04-17 01:57 | W.PM.EVENTAC ---
Event Note Event Note: AGAINST MEDICAL ADVICE DISCHARGE SUMMARY Hospital Course: Lisbeth Smith is a 58-year-old female who presented with sudden vision loss, found to have acute CVA. Neurology consulted and followed. Patient treated with TNKase and admitted to ICU. Patient left in early AM on 04/17 against medical advice. Patient noted to have clear medical decision making capacity. Discussed risk of discharging against medical advice including but not limited to acute bleeding complications, stroke, and even . Advised to seek emergency care should she develop any new symptoms. Prescriptions for statin, aspirin, and Plavix sent to pharmacy. Recommend patient follow up with PCP Dr Corona as soon as possible. Time Spent: 35 minutes
[2024-04-17 02:00] VITALS: BP 157/78; O2SAT 97
--- NOTE | 2024-04-17 02:03 | PC.NURSE ---
Left AMA: When entering pt room to access pain, pt was found crying, talking on the phone. She reported that her dog is not doing well and that she needs to go home. This RN provided education on the risk of leaving related to receiving the medication TNkase. Discussed signs/symptoms that warrant coming back to the ER. Pt is A&Ox4. Left room to call Dr. Conteh. Came back to room and pt was crying and stated that her dog and that her is on the way to pick her up. Dr. Conteh on unit shortly after to talk to pt about leaving AMA. Pt is insist that she must go home. AMA paperwork signed. Vital signs stable. Reinforced education on safety and signs/symptoms while wheeling pt outside. Left @0200.
[2024-04-17 03:08] VITALS: BP 157/78; PULSE 88; RESP 17; TEMP 36.6; O2SAT 97
--- NOTE | 2024-04-17 08:13 | P.DS_ITS ---
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 Patient tells me that at about 830, she was getting dressed, when she suddenly developed left sided vision loss, and a headache, no facial droop, no slurring of words, no word finding difficulty, no focal weakness, she was brought in by private vehicle and actually walked into the ER, no balance issues, no other focal neurologic deficits, CT head no acute bleed, she was evaluated, NIH stroke scale 2, given TNKase at 10 AM, upon my arrival, she is alert oriented x 4, no facial, no slurring her words continues to have left-sided hemianopsia, she is complaining of a headache, she has received 500 mg of Depakote, no focal neurologic deficits on examination, zqui-eh-nned and muuyzl-xy-hyrd is normal bilaterally, good strength in upper and lower extremities she denies a prior history of stroke, denies a history of CAD, she does report, few years ago, she had a Apple Watch on and it showed episodes of atrial fibrillation, she has not had issues since then, denies a prior history of strokes, TIA, denies history of migraine headaches Patient was admitted to [facility] for acute CVA Acute CVA -With left-sided, numbness hemianopsia -Symptoms onset 8:30 AM -NIH stroke scale 2 -Status post TNKase - CT/CT head wo con* [id number] IMPRESSION: Small chronic appearing right occipital lobe infarction. MRI may be helpful given the acute nature of the patient's left visual loss Plan ? Monitor in ICU ? tPA precautions ? Repeat head CT in 24 hours ? Start statin ? Start aspirin and Plavix tomorrow ? IV fluids ? Neurochecks ? NIH stroke scale ? Aspiration precautions ? Speech therapy eval ? PT OT ? Treat systolic blood pressure of greater than 180, diastolic if greater than 105 ? IV fluids ? Cardiac echo ? MRI/MRA head and neck ordered for tomorrow ? CODE STATUS, DNR/DNI, confirmed with patient multiple times, does not want heroic measures ? SCDs for DVT prophylaxis, will start Lovenox tomorrow once head CT is within normal limits Headache ? Status post 500 mg IV Depacon ? Will consider Solu-Medrol -The evening of 04/16/2024 -Patient continues to have severe headaches, was threatening to leave AGAINST MEDICAL ADVICE -I had seen on multiple occasions in the ICU -Repeat head CT does not show any acute bleed -Given 1 mg morphine -She had already received 500 mg IV Depacon -I gave her 250 mg IV Solu-Medrol -Continues to have severe headaches -I gave her 5 mg IV push Reglan with 25 mg IV Benadryl, continues to have severe headaches -Spoke to Dr. Oliva -Recommended to start DHE protocol -She was given Zofran, Benadryl, DHE, valproic acid, 4 mg of morphine -She was reexamined her headache has significantly improved -However during the early mornings patient left AGAINST MEDICAL ADVICE -She is supposed to have a head CT in the morning 24 hours status post tPA, further workup for her stroke MRI MRA was ordered however she left AGAINST MEDICAL ADVICE -I was concerned for patient wellbieng so I gave her a call early this morning at about 8 AM 04/17/2024 she picked up the phone, she is alert oriented x 3, denies any focal weakness, no slurring words, no paresthesias, she continues to have some visual deficits, but it is hard to assess her over the phone, she does report a persistent headache although significantly improved compared to last night. I advised her that she should come back to the hospital, if she does have a worsening headache, call 911, discussed morbidity and mortality associated with leaving against medical advice, morbidity and mortality associated with CVA status post TNKase risks including but not limited to hemorrhagic stroke, cerebral edema. In addition she has not had her MRI, her further workup or blood pressure management and other management after stroke. However patient tells me that her service dog has , she is dealing with the , and she will not be coming back to the hospital. Discussed morbidity and mortality, she voiced understanding, all questions answered. For headache and her stroke she should follow-up with neurology Dr. Oliva. For her stroke, she has an allergy to aspirin -Do not take the aspirin that was sent -She can start Plavix 75 mg, and atorvastatin 40 mg starting tomorrow -Strongly urged her to come back to the hospital so good do the further workup for stroke -donot use nsaid Discharge Data Studies Completed and Pending Completed Studies During Hospitalization Category Date Time Status CT head wo con* [id number] Stat Cat Scan 04/16/24 09:[address] head wo con* [id number] Stat Cat Scan 04/16/24 15:16 Completed XR chest 1V portable [id number] Stat Exams 04/16/24 09:48 Completed Pending at discharge Category Date Time Status CV. echo complete* [id number] Stat Ultrasound 04/16/24 10:57 Taken Radiology Impressions Chest X-Ray 04/16/24 09:48 IMPRESSION: No acute findings. Head CT 04/16/24 15:16 IMPRESSION: 1. Small chronic inferior medial right occipital lobe infarction, stable. 2. No acute intracranial abnormality identified. Laboratory Results WBC 7.84 10^3/uL (3.29-11.43) 04/16/24 09:55 RBC 4.84 10^6/uL (3.85-5.65) 04/16/24 09:55 Hgb 15.00 g/dL (11.27-16.99) 04/16/24 09:55 Hct 45.5 % (36-47) 04/16/24 09:55 MCV 94.0 fl (85-98) 04/16/24 09:55 MCH 31.0 pg (27-33) 04/16/24 09:55 MCHC 33.0 g/dL (30-55) 04/16/24 09:55 RDW 11.9 % (12.1-15.1) L 04/16/24 09:55 Plt Count 233 10^3/cmm (157-399) 04/16/24 09:55 MPV 8.8 fL (7.4-10.4) 04/16/24 09:55 Neut % (Auto) 58.6 % 04/16/24 09:55 Lymph % (Auto) 34.2 % 04/16/24 09:55 [place] % (Auto) 5.5 % 04/16/24 09:55 Eos % (Auto) 1.0 % 04/16/24 09:55 Baso % (Auto) 0.4 % 04/16/24 09:55 Neut # (Auto) 4.60 10^3/uL (1.8-7.7) 04/16/24 09:55 Lymph # (Auto) 2.7 10^3/uL (0.8-4.8) 04/16/24 09:55 [place] # (Auto) 0.4 10^3/uL (0.2-0.9) 04/16/24 09:55 Eos # (Auto) 0.1 10^3/uL (0.0-0.8) 04/16/24 09:55 Baso # (Auto) 0.0 10^3/uL (0.0-0.1) 04/16/24 09:55 Nucleated RBC % (auto) 0 % 04/16/24 09:55 Nucleated RBCs # 0.0 /100WBC 04/16/24 09:55 ESR 38 mm/hr (0-15) H 04/16/24 09:55 PT 12.70 SECONDS (12.1-14.9) 04/16/24 09:55 INR 0.92 (0.8-1.2) 04/16/24 09:55 Sodium 137 mmol/L (136-145) 04/16/24 09:55 Potassium 3.7 mmol/L (3.5-5.1) 04/16/24 09:55 Chloride 101 mmol/L (98-107) 04/16/24 09:55 Carbon Dioxide 24 mmol/L (22-29) 04/16/24 09:55 Anion Gap 15.7 (5-19) 04/16/24 09:55 BUN 14 mg/dL (6-20) 04/16/24 09:55 Creatinine 0.6 mg/dL (0.5-0.9) 04/16/24 09:55 GFR Calculation 103.4 mL/min (90-130) 04/16/24 09:55 Glucose 172 mg/dL (65-115) H 04/16/24 09:55 POC Glucose 277 mg/dL (70-110) H 04/16/24 21:02 Calculated Osmolality 289 mOsm/kg (285-295) 04/16/24 09:55 Calcium 9.3 mg/dL (8.5-10.5) 04/16/24 09:55 Magnesium 2.2 mg/dL (1.7-2.3) 04/16/24 09:55 Total Bilirubin 0.3 mg/dL (0.15-1.2) 04/16/24 09:55 AST 13 U/L (0-32) 04/16/24 09:55 ALT 10 U/L (0-33) 04/16/24 09:55 Alkaline Phosphatase 75 U/L (35-105) 04/16/24 09:55 Troponin T Baseline < 6 ng/L (0-10) 04/16/24 09:55 Troponin T 120 Minute 6.40 ng/L (0-10) 04/16/24 12:14 Delta Troponin T 0.58526 ABS# (0-10) 04/16/24 12:14 Troponin T Hi Sens 6Hr 6.00 ng/L (0-10) 04/16/24 19:14 Troponin T Hi Sens 6Hr Delta 0.31196 ng/L (0-12) 04/16/24 19:14 C-Reactive Protein 5.2 mg/L (0.0-4.9) H 04/16/24 12:14 Total Protein 7.5 g/dL (6.6-8.7) 04/16/24 09:55 Albumin 4.4 g/dL (3.5-5.2) 04/16/24 09:55 Globulin 3.1 g/dL (1.3-4.6) 04/16/24 09:55 Procalcitonin 0.02 ng/mL (0-0.5) 04/16/24 12:14 TSH 1.15 uIU/mL (0.27-4.20) 04/16/24 09:55 Urine Color Yellow (Yellow) 04/16/24 11:19 Urine Appearance Cloudy (CLEAR) A 04/16/24 11:19 Urine pH 6.0 (5-7) 04/16/24 11:19 Ur Specific [place] 1.009 (1.005-1.030) 04/16/24 11:19 Urine Protein Negative (Negative) 04/16/24 11:19 Urine Glucose (UA) Negative (Normal) 04/16/24 11:19 Urine Ketones Negative (Negative) 04/16/24 11:19 Urine Blood Negative (Negative) 04/16/24 11:19 Urine Nitrate Negative (Negative) 04/16/24 11:19 Urine Bilirubin Negative (Negative) 04/16/24 11:19 Urine Urobilinogen 0.2 mg/dL (Negative) 04/16/24 11:19 Ur Leukocyte Esterase Negative (Negative) 04/16/24 11:19 Urine RBC 0-4 /hpf (0-2) H 04/16/24 11:19 Urine WBC 0-4 /hpf (0-5) H 04/16/24 11:19 Ur Squamous Epith Cells 0-4 /hpf (0-5) H 04/16/24 11:19 Amorphous Sediment Trace /hpf 04/16/24 11:19 Urine Bacteria 1+ /hpf (NONE) H 04/16/24 11:19 Hyaline Casts 0-4 /lpf H 04/16/24 11:19 Vitals Last Vital Signs Temp 97.9 F 04/17/24 03:08 Pulse 88 04/17/24 03:08 Resp 17 04/17/24 03:08 BP 157/78 04/17/24 03:08 Pulse Ox 97 04/17/24 03:08 O2 Del Method Room Air 04/17/24 02:00 Discharge Plan Discharge Patient Disposition: Left Against Medical Advice Condition: Stable Prescriptions: New atorvastatin 40 mg Tablet 40 mg PO BEDTIME 90 Days Qty: 90 3RF clopidogrel [Plavix] 75 mg tablet 75 mg PO DAILY 30 Days Qty: 30 0RF Rx Instructions: First dose on 04/18/2024. No Action epinephrine [EpiPen 2-Dudley] 0.3 mg/0.3 mL auto-injector 0.3 mg IM Q30M PRN (Reason: Allergy Symptoms) Prolia 60 mg/mL syringe 60 mg SUBCUT .every 6 months montelukast 10 mg tablet 10 mg PO DAILY Qty: 30 6RF fluticasone propionate [Flonase Allergy Relief] 50 mcg/actuation spray,suspension 2 spray intranasal DAILY PRN Rx Instructions: administer into each nostril levocetirizine 5 mg tablet 10 mg PO DAILY Qty: 180 3RF mirtazapine [Remeron] 15 mg tablet 15 mg PO .at bedtime 90 Days Qty: 90 0RF cholecalciferol (vitamin D3) 1,250 mcg (50,000 unit) capsule 1,250 mcg PO .COMPLEX Qty: 36 1RF Rx Instructions: 1,250 mcg orally 3 times weekly; prednisone 50 mg tablet 50 mg PO DAILY Qty: 5 0RF Referrals: Jazzy Oliva MD [Physician] - 1 week (cva) Saul Corona MD [Primary Care Provider] - 1-3 days Discharge Diet: Advance as tolerated and Usual diet Discharge Activity: Limit activity as instructed Activity Restrictions/Additional Instructions: No driving or operating machinery until released by PCP. 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
--- NOTE | 2024-04-17 11:41 | PC.NURSE ---
Addendum entered by Kia Velazquez 04/17/24 11:46: Follow up apt with PCP is tomorrow, per pt. Original Note: Stroke follow up phone call- 04/17/2024 at 0900 Called patient to check up on her. Pt stated that she is doing well, picked up her prescriptions already, has a follow up apt with her PCP and plans to follow up with Dr. Oliva soon as well. 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 Recommended not to take the aspirin if she is allergic and talking to her PCP and Dr. Oliva about her allergy to aspirin when she sees them.
== END 2024-04-17 02:00 | disposition left against medical advice (07) ==
LOC: ER 09:26 → ICU 11:02
PROVIDERS: Admitting Provider Family Medicine; Emergency Provider Emergency Medicine; PCP Internal Medicine; Visit Provider Family Medicine
DX: I63.531 Cerebral infarction due to unspecified occlusion or stenosis of right posterior cerebral artery (principal); R51.9 Headache, unspecified; I10 Essential (primary) hypertension; M81.0 Age-related osteoporosis without current pathological fracture; R29.702 NIHSS score 2; Z53.29 Procedure and treatment not carried out because of patient's decision for other reasons
CPT/HCPCS: 36415; 36416; 70450; 71045; 80053; 81001; 82962; 83735; 84145; 84443; 84484; 85025; 85610; 85651; 86140; 93005; 93306; 94664; 96365; 96366; 96372; 96375; 96376; 99291; 99292; G0378; J1110; J1171; J1200; J2270; J2405; J2470; J2765; J2919; J3101; J3490

== ENCOUNTER → 2024-05-17 16:27 | Outpatient (BNVA) | payer OTHER, SELFPAY | PROVIDERS: PCP Internal Medicine; Visit Provider Specialist | DX: I63.9 Cerebral infarction, unspecified (principal); R51.9 Headache, unspecified; I63.531 Cerebral infarction due to unspecified occlusion or stenosis of right posterior cerebral artery; M79.10 Myalgia, unspecified site | CPT/HCPCS: 36415; 82550; 83036; 85651; 86431 ==

== ENCOUNTER 2024-06-07 14:22 | Outpatient (CLI) | payer OTHER, SELFPAY ==
--- NOTE | 2024-06-07 15:00 | XR_ITS ---
WS: [id number] SCREENING DEXA SCAN [place] CLINICAL INFORMATION: M81.0 - Age-related osteoporosis without current patholog... COMPARISON: 2019 FINDINGS: The L1-L4 bone mineral density measures 0.868 g/cm2. This corresponds to a T score score of -2.6 and Z score of -2.0. Left forearm bone mineral density measures 0.79. This corresponds to a T score of -1.0 and Z score of -0.4. XR/XR DEXA axial skeleton* [id number] IMPRESSION: Osteoporosis lumbar spine. Osteopenia LEFT forearm.
== END 2024-06-07 14:23 | disposition home or self-care (01) ==
PROVIDERS: PCP Internal Medicine; Visit Provider Internal Medicine Rheumatology
DX: Z13.820 Encounter for screening for osteoporosis (principal); M81.0 Age-related osteoporosis without current pathological fracture; M85.832 Other specified disorders of bone density and structure, left forearm
CPT/HCPCS: 77080

== ENCOUNTER 2024-06-20 15:51 | Oncology outpatient (recurring) (ONCR) | payer OTHER, SELFPAY ==
--- NOTE | 2024-06-20 16:00 | MR_ITS ---
WS: [id number] MRI HEAD WITHOUT CONTRAST TECHNIQUE: Sagittal T1, T2 axial, T2 axial FLAIR, axial and coronal T1 images, axial susceptibility w eighted imaging, axial diffusion weighted images, and coronal T2 images were obtained. CLINICAL INFORMATION: I63.531 - Cerebral infarction due to unspecified occlusio... FINDINGS: No evidence of restricted diffusion to suggest acute ischemia. Ventricular system and basal cistern s are patent. Normal hyde-white differentiation. Chronic infarct in the posterior RIGHT parasagittal temporo-occipital junction with encephalomalacia. Small amount of hemosiderin in this area. Small natali unt of associated satellite hemosiderin along the RIGHT parahippocampal gyrus. Small infarct appears stable since 04/16/2024. Small amount of T1 hyperintense laminar necrosis involving the small infarct bed. Temporal lobes and hippocampal formations are normal in appearance. Normal optic chiasm and pituitary infundibulum. Normal posterior fossa. Normal vascular flow voids at the skull base. No extra-axial f luid collections. No evidence of mass or mass effect. Paranasal sinuses and mastoid air cells are well aerated. No other acute findings. IMPRESSION: 1. No evidence of restricted diffusion to suggest acute ischemia. 2. Chronic small RIGHT posterior temporal occipital infarct in a parasagittal location. Associated e ncephalomalacia and gliosis. Tiny amount of hemosiderin in this area. This appears stable since the C T 04/16/2024. 3. Adjacent satellite foci of hemosiderin along the RIGHT parahippocampal gyrus just anterior to the infarct may present chronic blood products or possibly a small cavernoma. Largest focus measures lucio roximately 4 mm. This can be followed up with gadolinium to assess for a small vascular anomaly in th is region 4. No other suspicious intracranial signal abnormalities. No significant parenchymal volume loss. 5. Normal optic chiasm and pituitary infundibulum. 6. No other suspicious findings.
--- NOTE | 2024-06-20 16:45 | MR_ITS ---
WS: [id number] MRA HEAD TECHNIQUE: Axial 3-D TOF images obtained with axial images and axial, sagittal, and coronal 2-D refor matted images. CLINICAL INFORMATION: I63.531 - Cerebral infarction due to unspecified occlusio... COMPARISON: CT 04/16/2024 FINDINGS: Distal vertebral arteries are patent. Basilar artery is patent. Normal vascularity to the RIM ROLLER OPERATOR territo ry bilaterally. Both ICAs are patent at the skull base. Normal vascularity to the JOLIE and MCA territories bilaterally . Mild stenosis LEFT proximal M2 segment. No evidence of proximal flow-limiting stenosis or aneurysm. Small RIGHT A1 segment. MR/MR angio head wo con [id number] IMPRESSION: 1. Mild stenosis LEFT proximal M2 segment just distal to the trifurcation. 2. No proximal flow-limiting stenosis. 3. Otherwise unremarkable intracranial MRA.
== END 2024-06-20 23:59 | disposition home or self-care (01) ==
LOC: RAD 15:52 → ONCMED 15:56
PROVIDERS: PCP Internal Medicine; Visit Provider Specialist
DX: I63.531 Cerebral infarction due to unspecified occlusion or stenosis of right posterior cerebral artery (principal); R51.9 Headache, unspecified; R41.3 Other amnesia
CPT/HCPCS: 70544; 70551

== ENCOUNTER 2024-07-11 14:42 | Outpatient (CLI) | payer OTHER, SELFPAY | END 2024-07-11 14:43 | disposition home or self-care (01) | LOC: SLEEP 14:43 | PROVIDERS: PCP Internal Medicine; Visit Provider Specialist | DX: G47.33 Obstructive sleep apnea (adult) (pediatric) (principal) | CPT/HCPCS: G0399 ==

== ENCOUNTER 2024-08-02 16:30 | Emergency (ER) | payer OTHER, SELFPAY ==
[2024-08-02 16:44] VITALS: BP 172/108; PULSE 80; RESP 18; TEMP 36.8; O2SAT 95; BMI 28.2
--- NOTE | 2024-08-02 16:58 | ECG_ITS ---
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 Measurements Intervals [place] Rate: 80 P: 66 MO: 140 QRS: 71 QRSD: 87 T: 89 QT: 396 QTc: 458 Interpretive Statements SINUS RHYTHM Compared to ECG 04/16/2024 18:21:45 No significant changes Electronically Signed On 08-02-2024 17:19:10 FAMILY SUPPORT SPECIALIST by Teofilo Parker M.D. [email or web address]
--- NOTE | 2024-08-03 12:23 | PC.NURSE ---
Call to this patient to check in following LWBS yesterday. She was able to see her PCP at 10am today for new BP meds.
== END 2024-08-02 17:25 | disposition left against medical advice (07) ==
PROVIDERS: Emergency Provider Family Medicine; PCP Internal Medicine
DX: Z53.21 Procedure and treatment not carried out due to patient leaving prior to being seen by health care provider (principal)
CPT/HCPCS: 93005